=== PATIENT | female | born 1980 | race Caucasian/White ===

== ENCOUNTER 2019-12-24 10:18 | Emergency (ER) | payer BC, SELFPAY ==
--- NOTE | ~2019-12-24 | XR_ITS ---
XR abdomen/kub 1V 12/24/2019 11:56 INDICATION: Flank pain TECHNIQUE: KUB COMPARISON: None FINDINGS: Bowel gas pattern is normal. Moderate colonic fecal loading. There is no evidence of free a ir, mass, organomegaly, ascites or obstruction. No abnormal calculi are seen. The bones appear inta ct. IMPRESSION: 1: No acute abdominal abnormality identified. Reviewed, dictated and finalized at location A.
--- NOTE | ~2019-12-24 | CT_ITS ---
EXAMINATION: CT abdomen pelvis wo con DATE: 12/24/2019 11:44 INDICATION: Pain near the umbilicus. Epigastric pain. Right lower quadrant pain. TECHNIQUE: Computed tomography (CT) of the abdomen and pelvis was performed without intravenous contr ast. The dose-length product was 422.88 mGy-cm. Automated exposure control and iterative reconstructi on technique were employed. COMPARISON: CT dated 01/04/2017 FINDINGS: Lung bases are unremarkable. No significant pleural or pericardial effusion. Heart size is normal. The liver, spleen, pancreas, adrenal glands and left kidney are within normal limits. 2 mm nonobstruc ting right renal stone. No ureteral stones or hydronephrosis. There is a right periumbilical fat-cont aining hernia. Normal appendix. The liver, spleen, pancreas, adrenal glands and left kidney are unremarkable. Gallbladder is present. Moderate colonic fecal loading. No obstruction. Gallbladder is present. No free air or free fluid. S mall sclerotic lesions in the pelvis, likely benign without significant change. IMPRESSION: 1. Small fat-containing periumbilical hernia. There is an adjacent fat-containing umbilical hernia. 2: Punctate nonobstructing 2 mm right renal stone. Reviewed, dictated and finalized at location A. IMPRESSION: 1. Small fat-containing periumbilical hernia. There is an adjacent fat-containi ng umbilical hernia. 2: Punctate nonobstructing 2 mm right renal stone.
[2019-12-24 10:53] VITALS: BP 126/85; PULSE 101; RESP 20; TEMP 37.1; O2SAT 100
[2019-12-24 11:08] LABS: Basophils Percent Auto 0.4 % (0.2-1.2); Eosinophils Percent Auto 0.8 % (0-4.4); Hematocrit 40.4 % (37.0-47.0); Hemoglobin 13.6 g/dL (12.0-15.0); Immature Granulocyte Absolute 0.01 K/mm3 (0.00-0.031); Immature Granulocyte Percent A 0.2 % (0-0.5); Lymphocytes Absolute Auto 1.49 K/mm3 (0.9-3.2); Lymphocytes Percent Auto 30.6 % (18.3-44.2); Mean Corpuscular HGB Conc 33.7 g/dl (32-36); Mean Corpuscular Hemoglobin 31.3 pg (26-34); Mean Corpuscular Volume 93.1 fl (80-100); Mean Platelet Volume 8.7 fl (7.4-10.4); Monocytes Absolute Auto 0.3 K/mm3 (0.1-0.6); Monocytes Percent Auto 6.4 % (2.6-8.5); Neutrophils Percent Auto 61.6 % (45.5-73.1); Platelet Count Result 202 k/mm3 (150-375); Red Blood Count 4.34 M/mm3 (4.2-5.4); Red Cell Distribution Width 11.9 % (11.5-14.5); White Blood Count 4.9 K/mm3 (4.5-10.0)
--- NOTE | 2019-12-24 11:16 | ED.ABDPAIN ---
HPI - Abdominal Pain General Chief Complaint: Abdominal Pain Stated Complaint: Think I have appendicitis Time Seen by Provider: 12/24/19 11:10 Source: patient and RN notes reviewed Mode of arrival: ambulatory Limitations: no limitations History of Present Illness HPI narrative: Pt is a female presenting to the ED c/o ABD pain. Pt reports she started experiencing umbilical ABD pain radiating to her RLQ for 3 days. Pt states the pain is worsened with movement and going over speed bumps. Pt states she came from her Community Integration Specialist's office, Dr. Hughes, after presenting their due to a an annual inspection and for having the ABD pain. Pt also reports fever reaching 100.5 F, N/V, and feels a tight band around my chest going to my jaw , but denies dysuria or hematuria. Pt notes she took home medications of Zofran x2, Hydrocodone, and Advil x2 at 0530 this morning, and states this is the last time she has had anything to eat or drink. Pt reports Hx's of Total hysterectomy, Bilateral oophorectomies due to a Hx of ovarian cysts, , and Exploratory Laparoscopies. Pertinent past history: other (Hysterectomy; Bilateral oophorectomies; ; Exploratory Laparoscopies) Onset (ago): day(s) (3) Location: other (Umbilical) Radiation: RLQ Exacerbating factors: movement and other (Going over speed bumps) Associated symptoms: nausea, vomiting, fever (Reaching 100.5 F) and other ( Tight band around my chest going to my jaw ) Related Data Home Medications Medication Instructions Recorded Confirmed clonazepam 12/24/19 fluoxetine mg 12/24/19 ondansetron HCl 12/24/19 12/24/19 oxycodone-acetaminophen 12/24/19 zolpidem 12/24/19 Allergies Allergy/AdvReac Type Severity Reaction Status Date / Time codeine Allergy Mild Itching Verified 12/24/19 11:12 Contrast Media Allergy Unknown Anaphylaxis Uncoded 12/24/19 11:12 Review of Systems Review of Systems: All systems reviewed & are unremarkable except as noted in HPI and below Constitutional: Constitutional: Reports fever(s) (Reaching 100.5 F) Cardiovascular: Cardiovascular: Reports other ( Tight band around my chest going to my jaw ) Gastrointestinal: Gastrointestinal: Reports abdominal pain (Umbilical radiating to RLQ), Reports nausea and Reports vomiting Genitourinary: Genitourinary: Denies hematuria and Denies dysuria PMFSH Past Medical History Medical History Anxiety Asthma Bilateral ovarian cysts Depression Endometriosis Hypothyroid IBS (irritable bowel syndrome) Kidney stone UTI (urinary tract infection) Surgical History Surgical History H/O bilateral oophorectomy H/O laparoscopy H/O right knee surgery H/O total hysterectomy History of History of tonsillectomy Social History Social History Smoking status: Never smoker Exam Narrative: Exam Narrative: GENERAL: Well-appearing, well-nourished HEAD: Normocephalic, atraumatic EYES: PERRLA and EOMI, conjunctiva clear without discharge THROAT:Mucous membranes moist NECK: Supple, without lymphadenopathy or mass RESPIRATORY: No respiratory distress, Airway patent, Respirations non-labored, Clear to auscultation without rales, rhonchi or wheeze HEART: Regular rate and rhythm. No murmur heard. Normal peripheral pulses. ABDOMEN: Soft, Diffuse with worse to RLQ, nondistended, normal active bowel sounds. No masses. No rebound or guarding, No organomegaly. EXTREMITIES: No edema, normal strength with full range of motion. SKIN: Warm, dry, normal color without rash NEURO: Alert and oriented x3. CN 2-12 grossly intact. No focal deficits. PSYCH: Normal mood and affect. Course Course Emergency Course: Patient was sent by OBGYN for abdominal pain . Patient also complained of substernal chest pain on arrival to ER. Her labs were unremarkable. Patient reported chest pain so s
[2019-12-24 11:26] LABS: Alanine Aminotransferase 18 U/L (4-35); Albumin Level 4.7 g/dL (3.5-5.1); Alkaline Phosphatase 58 U/L (38-126); Aspartate Amino Transferase 26 U/L (14-36); Bilirubin,Total 0.3 mg/dL (0.2-1.3); Blood Urea Nitrogen 15 mg/dL (7-17); Calcium 9.4 mg/dL (8.4-10.2); Carbon Dioxide 27 mmol/L (22-30); Chloride 101 mmol/L (98-107); Estimated CRCL calculation 106 ml/min; Estimated Glomerular Filt Rate > 60; Glucose 94 mg/dL (65-105); Lipase 68 U/L (23-300); Potassium 4.2 mmol/L (3.4-5.0); Sodium 138 mmol/L (137-145)
--- NOTE | 2019-12-24 11:26 | ECG_ITS ---
Measurements Intervals [place] Rate: 85 P: 56 [place]: 172 QRS: 59 QRSD: 77 T: 50 QT: 364 QTc: 434 Interpretive Statements SINUS RHYTHM EARLY PRECORDIAL R/S TRANSITION LOW QRS VOLTAGE IN LIMB LEADS BORDERLINE T WAVE ABNORMALITY- ANTERIOR LEADS BASELINE ARTIFACT- I, II, AVR, AVL, AVF, V1 BORDERLINE ECG Electronically Signed On 12-24-2019 13:06:27 CDT by Franck Chiu D.O.
[2019-12-24] MEDS: LACTATED RINGERS 1,000 ML 999 ML IV CONT (11:37)
[2019-12-24] MEDS: HYDROMORPHONE HCL 1 MG/ML INJ IV PUSH (11:37)
[2019-12-24] MEDS: ONDANSETRON INJ 4 MG/2 ML VIAL IV PUSH (11:37)
--- NOTE | 2019-12-24 12:23 | PC.NURSE ---
called lab and requested to calderon nieto
[2019-12-24 12:30] VITALS: BP 132/88; PULSE 88; RESP 18; O2SAT 97
[2019-12-24 12:30] LABS: Add Urine Microscopic? NO; Appearance Urine Clear (Clear); Bilirubin Urine Negative (Negative); Blood Urine Negative (Negative); Color Urine Yellow (Yellow); Glucose Urine UA Negative (Negative); Ketones Urine Negative (Negative); Leukocyte Esterase Ur Negative LEU/UL (Negative); Nitrate Urine Negative (Negative); Protein Urine Negative (Negative); Specific Grav Ur 1.018 (1.001-1.035); Urobilinogen Urine Negative mg/dL (<2.0)
[2019-12-24 12:52] LABS: Troponin I < 0.012 ng/mL (0.000-0.034)
== END 2019-12-24 13:38 | disposition left against medical advice (07) ==
PROVIDERS: Emergency Medicine; Emergency Provider General Practice
DX: R10.31 Right lower quadrant pain (principal); R07.9 Chest pain, unspecified; J45.909 Unspecified asthma, uncomplicated; E03.9 Hypothyroidism, unspecified; K58.9 Irritable bowel syndrome, unspecified; Z87.440 Personal history of urinary (tract) infections; N80.9 Endometriosis, unspecified; F41.9 Anxiety disorder, unspecified; F32.9 Major depressive disorder, single episode, unspecified; K42.9 Umbilical hernia without obstruction or gangrene; N20.0 Calculus of kidney; Z87.442 Personal history of urinary calculi; R94.31 Abnormal electrocardiogram [ECG] [EKG]
CPT/HCPCS: 36415; 74018; 74176; 80053; 81003; 83690; 84484; 85025; 93005; 96361; 96374; 96375; 99284; J1170; J2405; J7120

== ENCOUNTER 2021-11-25 11:55 | Emergency (ER) | payer OTHER, SELFPAY ==
--- NOTE | 2021-11-25 12:06 | ED.CHESTPAIN ---
HPI - Chest Pain General Chief Complaint: Chest Pain Stated Complaint: chest pain Time Seen by Provider: 11/25/21 12:06 Source: patient and RN notes reviewed Mode of arrival: ambulatory Limitations: no limitations History of Present Illness HPI narrative: 41-year-old female presents to the [facility] with complaints of 3 weeks of sternal to left-sided chest discomfort. Had seen primary care provider and was diagnosed with pleurisy, prescribed Augmentin and a steroid. This morning she became short of breath, diaphoretic and had increased chest pain. Also states that her heart has been racing. States that there feels like a gas bubble under her left breast and has become very painful. States she was going to drive to the emergency room but could not go any further than here. MD complaint: chest pain Related Data Home Medications Medication Instructions Recorded Confirmed clonazepam 12/24/19 ondansetron HCl 12/24/19 12/24/19 oxycodone-acetaminophen 12/24/19 zolpidem 12/24/19 amoxicillin-pot clavulanate tablet 11/25/21 escitalopram oxalate mg 11/25/21 11/25/21 estradiol mg 11/25/21 11/25/21 hydromorphone 11/25/21 propranolol 11/25/21 Allergies Allergy/AdvReac Type Severity Reaction Status Date / Time codeine Allergy Mild Itching Verified 11/25/21 13:02 Contrast Media Allergy Unknown Anaphylaxis Uncoded 11/25/21 12:50 Review of Systems Review of Systems: All systems reviewed & are unremarkable except as noted in HPI and below Constitutional: Constitutional: Reports no additional constitutional complaints, Denies chills and Denies fever(s) Eyes: Eyes: Reports no additional eye complaints ENT: Reports system reviewed and no additional complaints, except as documented Cardiovascular: Cardiovascular: Reports as per HPI, Reports chest pain and Reports rapid heart rate Respiratory: Respiratory: Reports as per HPI, Denies chest congestion, Denies cough, Reports dyspnea, Reports dyspnea on exertion and Denies wheezing Gastrointestinal: Gastrointestinal: Reports no additional gastrointestinal complaints, Denies abdominal pain, Denies nausea and Denies vomiting Musculoskeletal: Musculoskeletal: Reports no additional musculoskeletal complaints Integumentary/Breasts: Skin/Breast: Reports system reviewed and no additional complaints, except as docu Neurologic: Reports as per HPI, Denies confusion, Denies vertigo, Reports dizziness, Denies syncope, Denies headache(s), Denies focal weakness, Denies numbness and Denies weakness Psychiatric: Psychiatric: Reports no additional psychiatric complaints Allergic/Immunologic: Allergic/Immunologic: Reports no additional allergic/immunologic complaints [facility] Past Medical History Medical History (Updated 11/25/21 @ 12:56 by Carmen Robles) Anxiety Asthma Autoimmune disorder Bilateral ovarian cysts Depression Endometriosis Hypothyroid IBS (irritable bowel syndrome) Kidney stone UTI (urinary tract infection) Surgical History Surgical History H/O bilateral oophorectomy H/O laparoscopy H/O right knee surgery H/O total hysterectomy History of History of tonsillectomy Social History Social History Smoking status: Never smoker Comments At the time of my signature, I reviewed and agree with the nursing past medical, surgical, social, and family history. There is no relevant family history pertinent to the patient complaint. Exam Const: General: alert, awake, acute distress mild (pain), diaphoretic and uncomfortable Nutritional Appearance: well nourished Orientation/consciousness: patient oriented x3 Limitations: no limitations HENMT: Head: normal to inspection Eyes: Pupils: Equal, round and reactive pupils present Neck: Neck: normal visual inspection, no lymphadenopathy and no meningeal signs Chest: Chest palpation & inspection: normal inspection
[2021-11-25 12:12] VITALS: BP 128/83; PULSE 136; RESP 18; TEMP 36.3; O2SAT 98
[2021-11-25 12:39] VITALS: BP 134/94
--- NOTE | 2021-11-25 12:39 | ECG_ITS ---
Measurements Intervals [place] Rate: 116 P: 50 [place]: 163 QRS: 69 QRSD: 81 T: 29 QT: 301 QTc: 419 Interpretive Statements SINUS TACHYCARDIA LOW QRS VOLTAGE- DIFFUSE LEADS ABNORMAL ECG Electronically Signed On 11-25-2021 13:20:18 COMPO CASTER by Franck Chiu D.O.
--- NOTE | 2021-11-25 13:15 | PC.NURSE ---
1221- (4) 81mg Aspirin given to pt, medication not scanned d/t medication laptop being inoperable. Medication verified prior to administration by VAISHALI Robles.
== END 2021-11-25 12:34 | disposition short-term general hospital (02) ==
PROVIDERS: Emergency Provider Nurse Practitioner; PCP Family Medicine
DX: R07.89 Other chest pain (principal); R00.0 Tachycardia, unspecified; J45.909 Unspecified asthma, uncomplicated; N80.9 Endometriosis, unspecified; E03.9 Hypothyroidism, unspecified; D89.89 Other specified disorders involving the immune mechanism, not elsewhere classified
CPT/HCPCS: 93005; 99215; A9270; G0463

== ENCOUNTER 2021-11-25 12:54 | Emergency (ER) | payer OTHER, SELFPAY ==
--- NOTE | ~2021-11-25 | CT_ITS ---
EXAMINATION: CT chest abdomen wo con DATE: 11/25/2021 16:53 INDICATION: Chest and abdominal pain. TECHNIQUE: Computed tomography (CT) of the chest and abdomen was performed without intravenous contra st. Automated exposure control and iterative reconstruction technique were employed. The dose-length product was 361.84 mGy-cm. COMPARISON: CT abdomen and pelvis 12/24/2019, chest CT 08/07/2018 FINDINGS: CHEST CT: There is minimal atelectasis in the lungs. There is a 5 mm nodule in right upper lobe, stable from , likely benign. Again seen is a 5 mm nodule at minor fissure, likely benign. Again seen is a 4 mm nodule in left lower lobe, likely benign. No pleural effusion. The heart size is normal. No per icardial effusion. There is mild thoracic spondylosis. ABDOMEN CT: The liver, gallbladder, spleen, pancreas, and adrenal glands are normal. There is a 2 mm stone in rig ht kidney. Left kidney is normal. There are no dilated loops of bowel. There is a large volume of sto ol in the colon. The included portion of the appendix is normal. There is an infraumbilical ventral h ernia containing fat. There are no pathologically enlarged lymph nodes. There is no free intraperiton eal fluid. There is mild lumbar spondylosis. IMPRESSION: 1. Infraumbilical ventral hernia containing fat. Reviewed, dictated and finalized at location E. LA CHARGER
--- NOTE | ~2021-11-25 | XR_ITS ---
XR chest 2V DATE: 11/25/2021 13:24 INDICATION: Chest pain TECHNIQUE: PA and lateral views COMPARISON: 08/07/2018 CT chest 07/30/2012 two-view chest FINDINGS: Normal heart size. No hilar or mediastinal enlargement. No pulmonary infiltrate or consolid ation, pleural effusion or pulmonary vascular congestion or pneumothorax. Included skeletal structures are unremarkable. IMPRESSION: No active cardiopulmonary disease Reviewed, dictated and finalized at location A. FILLING MACHINE OPERATOR
--- NOTE | 2021-11-25 12:58 | ECG_ITS ---
Measurements Intervals [place] Rate: 123 P: [place]: 0 QRS: 85 QRSD: 85 T: 41 QT: 301 QTc: 432 Interpretive Statements SINUS TACHYCARDIA BORDERLINE T WAVE ABNORMALITY- ANTERIOR LEADS ABNORMAL ECG Electronically Signed On 11-25-2021 13:54:48 SALES REPRESENTATIVE JEWELRY by Franck Chiu D.O.
[2021-11-25 13:03] VITALS: BP 119/69; PULSE 117; RESP 18; TEMP 36.4; O2SAT 98
[2021-11-25 13:26] LABS: Basophils Percent Auto 0.3 % (0.2-1.2); Eosinophils Absolute Auto 0.1 K/mm3 (0-0.3); Eosinophils Percent Auto 1.1 % (0-4.4); Hematocrit 40.7 % (37.0-47.0); Hemoglobin 13.7 g/dL (12.0-15.0); Immature Granulocyte Absolute 0.01 K/mm3 (0.00-0.031); Immature Granulocyte Percent A 0.2 % (0-0.5); Lymphocytes Absolute Auto 2.73 K/mm3 (0.9-3.2); Lymphocytes Percent Auto 44.8 % (18.3-44.2); Mean Corpuscular HGB Conc 33.7 g/dl (32-36); Mean Corpuscular Hemoglobin 32.2 pg (26-34); Mean Corpuscular Volume 95.5 fl (80-100); Mean Platelet Volume 8.5 fl (7.4-10.4); Monocytes Absolute Auto 0.5 K/mm3 (0.1-0.6); Monocytes Percent Auto 7.4 % (2.6-8.5); Neutrophils Absolute Auto 2.8 K/mm3 (1.3-6.7); Neutrophils Percent Auto 46.2 % (45.5-73.1); Platelet Count Result 228 k/mm3 (150-375); Red Blood Count 4.26 M/mm3 (4.2-5.4); Red Cell Distribution Width 12.4 % (11.5-14.5); White Blood Count 6.1 K/mm3 (4.5-10.0)
[2021-11-25 13:35] LABS: Alanine Aminotransferase 24 U/L (4-35); Albumin Level 4.3 g/dL (3.5-5.1); Alkaline Phosphatase 50 U/L (38-126); Anion Gap 3 mmol/L (8-16); Aspartate Amino Transferase 25 U/L (14-36); Bilirubin,Total 0.3 mg/dL (0.2-1.3); Blood Urea Nitrogen 21 mg/dL (7-17); Calcium 9.4 mg/dL (8.4-10.2); Carbon Dioxide 29 mmol/L (22-30); Chloride 101 mmol/L (98-107); Estimated CRCL calculation 92 ml/min; Estimated Glomerular Filt Rate > 60; Glucose 113 mg/dL (65-110); Lipase 58 U/L (23-300); Potassium 4.5 mmol/L (3.4-5.0); Sodium 133 mmol/L (137-145)
[2021-11-25 13:36] LABS: INR 1.2; Prothrombin Time 14.7 Seconds (11.1-14.7)
[2021-11-25 13:37] LABS: Partial Thromboplastin Time 27.3 SECONDS (22.3-36.8)
[2021-11-25 13:47] LABS: Troponin I < 0.012 ng/mL (0.000-0.034)
[2021-11-25 15:55] VITALS: O2SAT 97
[2021-11-25 16:30] VITALS: BP 111/74; PULSE 103; RESP 16; O2SAT 99
[2021-11-25] MEDS: MORPHINE SULFATE (*CRX) 4 MG/ML INJ IV PUSH (16:56)
[2021-11-25] MEDS: ONDANSETRON INJ 4 MG/2 ML VIAL IV PUSH (16:56)
[2021-11-25 17:30] VITALS: BP 102/78; PULSE 97; RESP 12; O2SAT 98
[2021-11-25 17:43] LABS: Troponin I < 0.012 ng/mL (0.000-0.034)
--- NOTE | 2021-11-25 18:04 | ED.CHESTPAIN ---
HPI - Chest Pain General Chief Complaint: Chest Pain Stated Complaint: chest pain, shortness of breath Time Seen by Provider: 11/25/21 16:04 Source: patient Mode of arrival: EMS Limitations: no limitations History of Present Illness HPI narrative: 43-year-old with a history of anxiety, depression here with complaints of left-sided chest pain and left upper abdominal pain for last 3 weeks. Patient states that she has seen her doctor was given steroids and pain medication with minimal relief. She denies any shortness of breath. Patient was seen earlier at urgent care and was later referred here to the ER for further evaluation. She denies any nausea, vomiting or diarrhea. No history of fever or chills. MD complaint: chest pain Onset (ago): week(s) (3) Timing of current episode: constant Pain location: left chest Pain radiation: abdomen (Left upper abdominal) Severity: moderate Quality: aching Relieving factors: nothing Exacerbating factors: nothing Risk Factors Coronary artery disease risk factors: none Related Data Home Medications Medication Instructions Recorded Confirmed clonazepam 12/24/19 ondansetron HCl 12/24/19 12/24/19 oxycodone-acetaminophen 12/24/19 zolpidem 12/24/19 amoxicillin-pot clavulanate tablet 11/25/21 escitalopram oxalate mg 11/25/21 11/25/21 estradiol mg 11/25/21 11/25/21 hydromorphone 11/25/21 propranolol 11/25/21 Allergies Allergy/AdvReac Type Severity Reaction Status Date / Time codeine Allergy Mild Itching Verified 11/25/21 15:52 Contrast Media Allergy Unknown Anaphylaxis Uncoded 11/25/21 12:50 Review of Systems Review of Systems: All systems reviewed & are unremarkable except as noted in HPI and below Constitutional: Constitutional: Reports no additional constitutional complaints Eyes: Eyes: Reports no additional eye complaints ENT: Reports system reviewed and no additional complaints, except as documented Cardiovascular: Cardiovascular: Reports as per HPI Respiratory: Respiratory: Reports no additional respiratory complaints Gastrointestinal: Gastrointestinal: Reports as per HPI Musculoskeletal: Musculoskeletal: Reports no additional musculoskeletal complaints Integumentary/Breasts: Skin/Breast: Reports system reviewed and no additional complaints, except as docu Neurologic: Reports system reviewed and no additional complaints, except as documented Psychiatric: Psychiatric: Reports no additional psychiatric complaints Endocrine: Endocrine: Reports no additional endocrine complaints PMFSH Past Medical History Medical History Anxiety Asthma Autoimmune disorder Bilateral ovarian cysts Depression Endometriosis Hypothyroid IBS (irritable bowel syndrome) Kidney stone UTI (urinary tract infection) Surgical History Surgical History H/O bilateral oophorectomy H/O laparoscopy H/O right knee surgery H/O total hysterectomy History of History of tonsillectomy Social History Social History Smoking status: Never smoker Exam Narrative: GENERAL: Well-appearing, well-nourished, and in no acute distress. HEAD: Normocephalic, atraumatic. EYES: PERRLA and EOMI. NECK: Supple. CHEST: Clear to auscultation. No respiratory distress. There is no evidence of rash under the left breast or in the back HEART: Regular rate and rhythm. No murmur heard. Normal peripheral pulses. ABDOMEN: Soft, diffuse tenderness , nondistended, normal active bowel sounds. EXTREMITIES: Normal range of motion. No edema. SKIN: Warm, dry, no rash. NEURO: No focal deficits. Alert and oriented x3. PSYCH: Normal mood and affect. Course Course Emergency Course: Patient comfortably lying on stretcher in no discomfort. I informed her about her lab work, CT findings and EKG cause of her left-sided chest pain which has been on
[2021-11-25 18:10] VITALS: BP 102/74; PULSE 105; RESP 16; O2SAT 96
== END 2021-11-25 18:15 | disposition home or self-care (01) ==
PROVIDERS: Emergency Medicine; Emergency Provider Family Medicine; PCP Family Medicine
DX: R07.9 Chest pain, unspecified (principal); R10.12 Left upper quadrant pain; R00.0 Tachycardia, unspecified; F41.9 Anxiety disorder, unspecified; J45.909 Unspecified asthma, uncomplicated; F32.9 Major depressive disorder, single episode, unspecified; E03.9 Hypothyroidism, unspecified; Z87.442 Personal history of urinary calculi
CPT/HCPCS: 36415; 71046; 71250; 74150; 80053; 83690; 84484; 85025; 85610; 85730; 93005; 96374; 96375; 99284; A9270; J2270; J2405

== ENCOUNTER 2022-03-31 14:06 | Outpatient (CLI) | payer OTHER, SELFPAY ==
--- NOTE | ~2022-03-31 | MM_ITS ---
EXAMINATION: MM screening bret BI w sharron HISTORY: Screening TECHNIQUE: Craniocaudal and mediolateral oblique 3-D tomosynthesis images were obtained and synthetic 2-D images were generated. CAD analysis was submitted and interpreted. COMPARISON: No prior mammogram is available for comparison at this institution. BREAST PARENCHYMAL COMPOSITION: The breasts are heterogenously dense, which may obscure small masses FINDINGS: There is no evidence of suspicious mass, calcification, or architectural distortion to sugg est malignancy in either breast. There has been no suspicious interval change. IMPRESSION: 1. No mammographic evidence of malignancy. 2. Recommend routine screening mammography in one year. BI-RADS Category 1: Negative Reviewed, dictated and finalized at location A.
== END 2022-03-31 14:07 | disposition home or self-care (01) ==
LOC: ANHIMG 14:07
PROVIDERS: PCP Family Medicine; Visit Provider Obstetrics & Gynecology
DX: Z12.31 Encounter for screening mammogram for malignant neoplasm of breast (principal)
CPT/HCPCS: 77063; 77067

== ENCOUNTER 2025-07-11 07:30 | Emergency (ER) | payer BC, SELFPAY ==
--- NOTE | ~2025-07-11 | XR_ITS ---
Examination: XR chest 2V Clinical History: CHEST PAIN/SOB Comparison: 11/25/2021 Technique: PA and Lateral Findings: Cardiomediastinal silhouette normal size and configuration. Lungs clear. No acute bony abnormality. IMPRESSION: 1. No acute cardiopulmonary findings. Reviewed, dictated and finalized at location R.
--- NOTE | 2025-07-11 07:31 | ECG_ITS ---
Test Date: 2025-07-11 07:36:38 Measurements Intervals [place] Rate: 112 P: 58 [place]: 159 QRS: 89 QRSD: 86 T: 43 QT: 317 QTc: 433 Interpretive Statements SINUS TACHYCARDIA LOW-VOLTAGE QRS OTHERWISE NORMAL ECG No previous ECG available for comparison Electronically Signed On 07-11-2025 12:45:00 CDT by Sonu Ordonez M.D.
[2025-07-11 07:35] VITALS: BP 129/65; PULSE 105; RESP 29; TEMP 35.6; O2SAT 100
[2025-07-11 07:37] VITALS: BP 129/65; PULSE 111; RESP 19; O2SAT 100
[2025-07-11 07:45] VITALS: PULSE 107; O2SAT 98
[2025-07-11] MEDS: ASPIRIN 81 MG CHEWABLE TABLET 324 MG PO (07:51)
[2025-07-11 07:53] LABS: Hematocrit 40.2 % (37.0-47.0); Hemoglobin 13.6 g/dL (12.0-15.0); Immature Granulocyte Percent A 0.3 % (0-0.5); Lymphocytes Absolute Auto 1.82 K/mm3 (0.9-3.2); Mean Corpuscular HGB Conc 33.8 g/dl (32-36); Mean Corpuscular Hemoglobin 31.4 pg (26-34); Mean Corpuscular Volume 92.8 fl (80-100); Nucleated Red Blood Cells Absolute Auto 0.000 K/mm3 (0.0-0.012); Nucleated Red Blood Cells Perc 0.0 % (0.0-0.2); Platelet Count Result 215 k/mm3 (150-375); Red Blood Count 4.33 M/mm3 (4.2-5.4); White Blood Count 5.9 K/mm3 (4.5-10.0)
--- OUTSIDE RECORDS SUMMARY | 2025-07-11 07:54 | XMS_ITS | Encounter Summary ---
Author Organization [facility] Address [facility] [place] [address] Care Team Providers Care Inside Tester Name Role Phone Tyson Vázquez MD Primary Care Provider [phone] Encounter Details Date Type Department Care Team (Late st Contact Info) Description 03/24/2019 Abstract [facility] CONVERSION [id number] [place], [place] [id number] , Generic Conversion, Social History Tobacco Use Types Packs/Day Years Used Date Smoking Tobacco: Never Smokeless Tobacco: Never Comments Unknown Sex and Gender Information Value Date Recorded Sex Assigned at Not on file Legal Sex Female 7:18 PM CDT Gender Identity Not on file Sexual Orientation Not on file documented as of this encounter Plan of Treatment Not on file documented as of this encounter Visit Diagnoses Not on filedocumented in this encounter Additional Health Concerns Infection Onset Date Last Indicated Resolved Time COVID-19 Rule Out 04/30/2020 04/30/2020 04/30/2020 8:50 AM CDT documented as of this encounter Care Teams Inside Tester Relationship Specialty Start Date End Date Tyson Vázquez MD [address] [place] [address] PCP - General 12/28/15 documented as of this encounter
--- OUTSIDE RECORDS SUMMARY | 2025-07-11 07:54 | XMS_ITS | Encounter Summary ---
Author Organization [facility] Facility Care Team Providers Care Refueling Ramp Supervisor Name Role Phone Tyson Vázquez MD Primary Care Provid er Jonah Ceron DO Unavailable Bhupinder NICHOLS MD, Jonah Caraballo Unavailable [phone] Carie Rush Primary Care Provider + Encounter Details Date Type Department Care Team (Latest Contact Info) Description 05/01/2017 Orders Only [facility] CLINCONV ProviderLogan MD [address] [place] [id number] Social History Tobacco Use Types Packs/Day Years Used Date Smoking Tobacco: Never Alcohol Use Standard Drinks/Week Comments Yes 0 (1 standard drink = 0.6 oz pur e alcohol) Comments Unknown Sex and Gender Information Value Date Recorded Sex Assigned at Not on file 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 us Historical Provider [facility] CARDIAC SERVICES PROCE KELLEE Final Result documented in this encounter Visit Diagnoses Not on filedocumented in this encounter Care Teams Refueling Ramp Supervisor Relationship Specialty Start Date End Date Tyson Vázquez MD [address] [place] [address] PCP - General 10/08/15 04/28/25 Carie Rush PA [address] [facility] [address] [place] [address] PCP - General Family Medicine 04/29/25 Jonah Ceron DO [address] [place] [address] MEDICAL ONCOLOGY, [facility] [address] [place], [place] [id number] Medical Oncologist/Cottage Master Hematology and Oncology 12/24/20 Jonah Roe III, MD [address] [place] [address] Consulting Physician Rheumatology 05/13/21 documented as of this encounter
--- OUTSIDE RECORDS SUMMARY | 2025-07-11 07:54 | XMS_ITS | Encounter Summary ---
Author Organization [facility] Facility Care Team Providers Care Fructose Loader Name Role Phone Tyson Vázquez MD Primary Care Provid er Jonah Ceron DO Unavailable [phone] Bhupinder NICHOLS MD, Jonah Caraballo Unavailable [phone] Carie Rush Primary Care Provider + Encounter Details Date Type Department Care Team (Latest Contact Info) Description 04/17/2017 Orders Only [facility] CLINCONV ProviderLogan MD [address] [place] [address] Social History Tobacco Use Types Packs/Day Years Used Date Smoking Tobacco: Never Alcohol Use Standard Drinks/Week Comments Yes 0 (1 standard drink = 0.6 oz pur e alcohol) Comments Unknown Sex and Gender Information Value Date Recorded Sex Assigned at Not on file 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 us Historical Provider CV CARDIAC SERVICES PROCE KELLEE Final Result documented in this encounter Visit Diagnoses Not on filedocumented in this encounter Care Teams Fructose Loader Relationship Specialty Start Date End Date Tyson Vázquez MD [address] [place] [address] PCP - General 10/08/15 04/28/25 Carie Rush PA [address] [facility] [address] [place] [address] PCP - General Family Medicine 04/29/25 Jonah Ceron DO [address] [place] [address] MEDICAL ONCOLOGY, [facility] [address] [place], [place] [id number] Medical Oncologist/Retirement Actuary Hematology and Oncology 12/24/20 Jonah Roe III, MD [address] [place] [address] Consulting Physician Rheumatology 05/13/21 documented as of this encounter
--- OUTSIDE RECORDS SUMMARY | 2025-07-11 07:54 | XMS_ITS | Encounter Summary ---
Author Organization [facility] Facility Care Team Providers Care Mattress Finisher Name Role Phone Tyson Vázquez MD Primary Care Provid er Jonah Ceron DO Unavailable [phone] Bhupinder NICHOLS MD, Jonah Caraballo Unavailable [phone] Carie Rush Primary Care Provider + Encounter Details Date Type Department Care Team (Latest Contact Info) Description 04/26/2017 Orders Only [facility] CLINCONV ProviderLogan MD [address] [place] [address] Social History Tobacco Use Types Packs/Day Years Used Date Smoking Tobacco: Never Alcohol Use Standard Drinks/Week Comments Yes 0 (1 standard drink = 0.6 oz pur e alcohol) Comments Unknown Sex and Gender Information Value Date Recorded Sex Assigned at Not on file Legal Sex Female 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 us Historical Provider CV CARDIAC SERVICES PROCE [facility] Final Result documented in this encounter Visit Diagnoses Not on filedocumented in this encounter Care Teams Mattress Finisher Relationship Specialty Start Date End Date yTson Vázquez MD [address] [place] [address] PCP - General 10/08/15 04/28/25 Carie Rush PA [address] [facility] [address] [place] [address] PCP - General Family Medicine 04/29/25 Jonah Ceron DO [address] [place] [address] MEDICAL ONCOLOGY, [facility] [address] [place], [place] [id number] Medical Oncologist/Line Helper Hematology and Oncology 12/24/20 Jonah Roe III, MD [address] [place] [address] Consulting Physician Rheumatology 05/13/21 documented as of this encounter
--- OUTSIDE RECORDS SUMMARY | 2025-07-11 07:54 | XMS_ITS | Encounter Summary ---
Author Organization [facility] Facility Care Team Providers Care Tableau Report Developer Name Role Phone Tyson Vázquez MD Primary Care Provid er Jonah Ceron DO Unavailable [phone] Bhupinder NICHOLS MD, Jonah Caraballo Unavailable [phone] Carie Rush Primary Care Provider + Encounter Details Date Type Department Care Team (Latest Contact Info) Description 05/11/2017 Orders Only [facility] CLINCONV ProviderLogan MD [address] [place] [address] Social History Tobacco Use Types Packs/Day Years Used Date Smoking Tobacco: Never Alcohol Use Standard Drinks/Week Comments Yes 0 (1 standard drink = 0.6 oz pur e alcohol) Comments Unknown Sex and Gender Information Value Date Recorded Sex Assigned at Not on file Legal Sex Female 3:14 AM CLASSIFICATION CASE MANAGER Gender Identity Female 03/20/2018 4:57 PM CDT Sexual Orientation Not on file documented as of this encounter Plan of Treatment Not on file documented as of this encounter Procedures Procedure Name Priority Date/Time Associated Diagnosis Comments CARDIOLOGY REPORT 05/11/2017 12: 00 AM CDT documented in this encounter Results * CARDIOLOGY REPORT (05/11/2017 12:00 AM CDT) Anatomical Region Laterality Modality Other Narrative 05/11/2017 12:00 AM CDT Ordered by an unspecified provider. us Historical Provider CV CARDIAC SERVICES PROCE [facility]LEE Final Result documented in this encounter Visit Diagnoses Not on filedocumented in this encounter Care Teams Tableau Report Developer Relationship Specialty Start Date End Date Tyson Vázquez MD [address] [place] [address] PCP - General 10/08/15 04/28/25 Carie Rush PA [address] [facility] [address] [place] [address] PCP - General Family Medicine 04/29/25 Jonah Ceron DO [address] [place] [address] MEDICAL ONCOLOGY, [facility] [address] [place], [place] [id number] Medical Oncologist/Oil Distributor Tender Hematology and Oncology 12/24/20 Jonah Roe III, MD [address] [place] [address] Consulting Physician Rheumatology 05/13/21 documented as of this encounter
--- OUTSIDE RECORDS SUMMARY | 2025-07-11 07:54 | XMS_ITS | Clinical Summary ---
Author Organization [facility] Address [address] [place] [address] Care Team Providers Care Environmental Field Technician Name Role Phone Tyson Vázquez MD Primary Care Provider [phone] Allergies Active Allergy Reactions Criticality Noted Date Comments Codeine Itching 02/19/2019 Iodinated Contrast Media Shortness of Breath,Rash High 12/20/2014 IV dye Tramadol Itching 03/05/2011 itching Medications clonazePAM 0.5 MG disintegrating tablet DISSOLVE 2 TABLETS ON THE TONGUE Q 8 H FOR ANXIETY 0 02/17/20 19 Active fluoxetine 20 MG capsule Take 60 mg by mouth nightly. 1 01/16/20 19 Active oxyCODONE-acetamin ophen 10-325 MG tablet TK 1 TO 2 TS PO Q 6 H PRF SEVERE PAIN 0 02/14/20 19 Active zolpidem 10 MG tablet Take 10 mg by mouth nightly as needed. FOR SLEEP 0 02/13/20 19 Active HYDROmorphone 4 MG tablet Take 4 mg by mouth every 6 (six) hours as needed for Pain (for breakthrough pain). Active ondansetron 4 MG tablet Take 8 mg by mouth every 8 (eight) hours as needed for Nausea. Active tamsulosin 0.4 MG Cap Take 0.4 mg by mouth daily. Active Active Problems Problem Noted Date Diagnosed Date Right upper quadrant abdominal pain 02/19/2019 Epigastric abdominal pain 02/19/2019 Family History Medical History Relation Comments Cancer Father prostate, non-ho dgkins, melanoma Relation Status Comments Daughter Alive Father Alive Mother Alive Son Alive Social History Tobacco Use Types Packs/Day Years Used Date Smoking Tobacco: Never Smokeless Tobacco: Never Alcohol Use Standard Drinks/Week Comments Never 0 (1 standard drink = 0.6 oz pur e alcohol) AUDIT-C Answer Date Recorded Frequency of Alcohol Consumption Never 04/29/2020 Average Number of Drinks Not on file 020 Frequency of Binge Drinking Not on file 04/16 Comments No Sex and Gender Information Value Date Recorded Sex Assigned at Not on file Legal Sex Female 7:18 PM CDT Gender Identity Not on file Sexual Orientation Not on file Last Filed Vital Signs Vital Sign Reading Time Taken Comments Blood Pressure 108/76 04/30/2020 11:50 AM CDT Pulse 100 04/30/2020 11:50 AM CDT Temperature 36.7 C (98 F) 04/30/2020 11:50 AM CDT Respiratory Rate 18 04/30/2020 11:50 AM CDT Oxygen Saturation 98% 04/30/2020 11:50 AM CDT Inhaled Oxygen Concentration - - Weight 72.4 kg (159 lb 9.8 oz) 04/30/2020 6:10 A M CDT Height 166.4 cm (5' 5.5) 04/30/2020 6:10 AM CDT Body Mass Index 26.16 04/30/2020 6:10 AM CDT Plan of Treatment Health Maintenance Due Date Last Done Comments Colorectal Cancer Screening Colonoscopy (10 Years) 1978 Annual Physical 1981 Hepatitis C 1996 Hepatitis B Vaccines (1 of 3 - 19+ 3-dose series) 1997 Mammogram Screening 2018 DTaP, Tdap and Td Vaccines ( 2 - Td or Tdap) 10/18/2021 10/18/2011 COVID-19 Vaccine (2023-2 5 season) 2025 Pneumococcal Vaccine: Pediat rics (0 to 5 Years) and At-Risk Patients (6 to 49 Years) Aged Out 10/19/2010 No longer eligi ble based on patient's age to complete this topic Meningococcal B Vaccine Aged Out No l onger eligible based on patient's age to complete this topic Meningococcal Vaccine Aged Out No bernabe tomi eligible based on patient's age to complete this topic RSV Immunizations Under 20 Months Aged Out No longer eligible based on patient's age to complete this topic Insurance [facility] Care Teams Environmental Field Technician Relationship Specialty Start Date End Date Tyson Vázuqez MD [address] [facility] [place] [address] PCP - General 12/28/15
--- OUTSIDE RECORDS SUMMARY | 2025-07-11 07:54 | XMS_ITS | Encounter Summary ---
Author Organization [facility] Facility Care Team Providers Care Lighting Technician Name Role Phone Tyson Vázquez MD Primary Care Provid er Jonah Ceron DO Unavailable [phone] Bhupinder NICHOLS MD, Jonah Caraballo Unavailable [phone] Carie Rush Primary Care Provider + Encounter Details Date Type Department Care Team (Latest Contact Info) Description 05/05/2017 Orders Only [facility] CLINCONV ProviderLogna MD [address] [place] [address] Social History Tobacco Use Types Packs/Day Years Used Date Smoking Tobacco: Never Alcohol Use Standard Drinks/Week Comments Yes 0 (1 standard drink = 0.6 oz pur e alcohol) Comments Unknown Sex and Gender Information Value Date Recorded Sex Assigned at Not on file 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 us Historical Provider CV CARDIAC SERVICES PROCE [facility] Final Result documented in this encounter Visit Diagnoses Not on filedocumented in this encounter Care Teams Lighting Technician Relationship Specialty Start Date End Date Tyson Vázquez MD [address] [place] [address] PCP - General 10/08/15 04/28/25 Carie Rush PA [address] [facility] [address] [place] [address] PCP - General Family Medicine 04/29/25 Jonah Ceron DO [address] [place] [address] MEDICAL ONCOLOGY, [facility] [address] [place], [place] [id number] Medical Oncologist/Hand Tile Maker Hematology and Oncology 12/24/20 Jonah Roe III, MD [address] [place] [address] Consulting Physician Rheumatology 05/13/21 documented as of this encounter
--- OUTSIDE RECORDS SUMMARY | 2025-07-11 07:54 | XMS_ITS | Encounter Summary ---
Author Organization [facility] Facility Care Team Providers Care Data Coordinator Name Role Phone Tyson Vázquez MD Primary Care Provid er Jonah Ceron DO Unavailable [phone] Bhupinder NICHOLS MD, Jonah Caraballo Unavailable [phone] Carie Rush Primary Care Provider + Encounter Details Date Type Department Care Team (Latest Contact Info) Description 05/08/2017 Orders Only [facility] CLINCONV ProviderLogan MD [address] [place] [address] Social History Tobacco Use Types Packs/Day Years Used Date Smoking Tobacco: Never Alcohol Use Standard Drinks/Week Comments Yes 0 (1 standard drink = 0.6 oz pur e alcohol) Comments Unknown Sex and Gender Information Value Date Recorded Sex Assigned at Not on file Legal Sex Female 3:14 AM NATIONAL ACCOUNT MANAGER Gender Identity Female 03/20/2018 4:57 PM CDT Sexual Orientation Not on file documented as of this encounter Plan of Treatment Not on file documented as of this encounter Procedures Procedure Name Priority Date/Time Associated Diagnosis Comments CARDIOLOGY REPORT 05/09/2017 12: 00 AM CDT documented in this encounter Results * CARDIOLOGY REPORT (05/09/2017 12:00 AM CDT) Anatomical Region Laterality Modality Other Narrative 05/09/2017 12:00 AM CDT Ordered by an unspecified provider. us Historical Provider CV CARDIAC SERVICES PROCE [facility]ELLEE Final Result documented in this encounter Visit Diagnoses Not on filedocumented in this encounter Care Teams Data Coordinator Relationship Specialty Start Date End Date Tyson Vázquez MD [address] [place] [address] PCP - General 10/08/15 04/28/25 Carie Rush PA [address] [facility] [address] [place] [address] PCP - General Family Medicine 04/29/25 Jonah Ceron DO [address] [place] [address] MEDICAL ONCOLOGY, [facility] [address] [place], [place] [phone] Medical Oncologist/Power Originator Hematology and Oncology 12/24/20 Jonah Roe III, MD [address] [place] [address] Consulting Physician Rheumatology 05/13/21 documented as of this encounter
--- OUTSIDE RECORDS SUMMARY | 2025-07-11 07:54 | XMS_ITS | Encounter Summary ---
Author Organization [facility] Facility Care Team Providers Care Peoplesoft Name Role Phone Tyson Vázquez MD Primary Care Provid er Jonah Ceron DO Unavailable [phone] Bhupinder NICHOLS MD, Jonah Caraballo Unavailable [phone] Carie Rush Primary Care Provider + Encounter Details Date Type Department Care Team (Latest Contact Info) Description 04/23/2017 Orders Only [facility] CLINCONV ProviderLogan MD [address] [place] [address] Social History Tobacco Use Types Packs/Day Years Used Date Smoking Tobacco: Never Alcohol Use Standard Drinks/Week Comments Yes 0 (1 standard drink = 0.6 oz pur e alcohol) Comments Unknown Sex and Gender Information Value Date Recorded Sex Assigned at Not on file Legal Sex Female 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 us Historical Provider CV CARDIAC SERVICES PROCE [facility]ELLEE Final Result documented in this encounter Visit Diagnoses Not on filedocumented in this encounter Care Teams Peoplesoft Relationship Specialty Start Date End Date Tyson Vázquez MD [address] [place] [address] PCP - General 10/08/15 04/28/25 Carie Rush PA [address] [facility] [address] [place] [address] PCP - General Family Medicine 04/29/25 Jonah Ceron DO [address] [place] [address] MEDICAL ONCOLOGY, [facility] [address] [place], [place] [phone] Medical Oncologist/Patient Accounting Representative Hematology and Oncology 12/24/20 Jonah Roe III, MD [address] [place] [address] Consulting Physician Rheumatology 05/13/21 documented as of this encounter
--- OUTSIDE RECORDS SUMMARY | 2025-07-11 07:54 | XMS_ITS | Encounter Summary ---
Author Organization [facility] Facility Care Team Providers Care Jewel Diameter Gauger Name Role Phone Tyson Vázquez MD Primary Care Provid er Jonah Ceron DO Unavailable [phone] Bhupinder NICHOLS MD, Jonah Caraballo Unavailable [phone] Carie Rush Primary Care Provider + Encounter Details Date Type Department Care Team (Latest Contact Info) Description 04/19/2017 Orders Only [facility] CLINCONV ProviderLogan MD [address] [place] [address] Social History Tobacco Use Types Packs/Day Years Used Date Smoking Tobacco: Never Alcohol Use Standard Drinks/Week Comments Yes 0 (1 standard drink = 0.6 oz pur e alcohol) Comments Unknown Sex and Gender Information Value Date Recorded Sex Assigned at Not on file Legal Sex Female 3:14 AM EPOXY SPECIALIST Gender Identity Female 03/20/2018 4:57 PM CDT Sexual Orientation Not on file documented as of this encounter Plan of Treatment Not on file documented as of this encounter Procedures Procedure Name Priority Date/Time Associated Diagnosis Comments CARDIOLOGY REPORT 04/21/2017 12: 00 AM CDT documented in this encounter Results * CARDIOLOGY REPORT (04/21/2017 12:00 AM CDT) Anatomical Region Laterality Modality Other Narrative 04/21/2017 12:00 AM CDT Ordered by an unspecified provider. us Historical Provider CV CARDIAC SERVICES PROCE [facility]LEE Final Result documented in this encounter Visit Diagnoses Not on filedocumented in this encounter Care Teams Jewel Diameter Gauger Relationship Specialty Start Date End Date Tyson Vázquez MD [address] [place] [address] PCP - General 10/08/15 04/28/25 Carie Rush PA [address] [facility] [address] [place] [address] PCP - General Family Medicine 04/29/25 Jonah Ceron DO [address] [place] [address] MEDICAL ONCOLOGY, [facility] [address] [place], [place] [phone] Medical Oncologist/Steward/Stewardess Economy Class Hematology and Oncology 12/24/20 Jonah Roe III, MD [address] [place] [address] Consulting Physician Rheumatology 05/13/21 documented as of this encounter
--- OUTSIDE RECORDS SUMMARY | 2025-07-11 07:54 | XMS_ITS | Encounter Summary ---
Author Organization [facility]/Health system Facility Care Team Providers Care Wash Helper Name Role Phone Tyson Vázquez MD Primary Care Provid er Jonah Ceron DO Unavailable [phone] Bhupinder NICHOLS MD, Jonah Caraballo Unavailable [phone] Carie Rush Primary Care Provider + Encounter Details Date Type Department Care Team (Latest Contact Info) Description 04/18/2017 Orders Only [facility] CLINCONV ProviderLogan MD [address] [place] [address] Social History Tobacco Use Types Packs/Day Years Used Date Smoking Tobacco: Never Alcohol Use Standard Drinks/Week Comments Yes 0 (1 standard drink = 0.6 oz pur e alcohol) Comments Unknown Sex and Gender Information Value Date Recorded Sex Assigned at Not on file Legal Sex Female 3:14 AM APPLIANCE TESTER Gender Identity Female 03/20/2018 4:57 PM CDT Sexual Orientation Not on file documented as of this encounter Plan of Treatment Not on file documented as of this encounter Procedures Procedure Name Priority Date/Time Associated Diagnosis Comments CARDIOLOGY REPORT 04/18/2017 12: 00 AM CDT documented in this encounter Results * CARDIOLOGY REPORT (04/18/2017 12:00 AM CDT) Anatomical Region Laterality Modality Other Narrative 04/18/2017 12:00 AM CDT Ordered by an unspecified provider. us Historical Provider CV CARDIAC SERVICES PROCE [facility]ELLEE Final Result documented in this encounter Visit Diagnoses Not on filedocumented in this encounter Care Teams Wash Helper Relationship Specialty Start Date End Date Tyson Vázquez MD [address] [place] [address] PCP - General 10/08/15 04/28/25 Carie Rush PA [address] [facility] [address] [place] [address] PCP - General Family Medicine 04/29/25 Jonah Ceron DO [address] [place] [address] MEDICAL ONCOLOGY, [facility] [address] [place], [place] [phone] Medical Oncologist/Director Of Safety Hematology and Oncology 12/24/20 Jonah Roe III, MD [address] [place] [address] Consulting Physician Rheumatology 05/13/21 documented as of this encounter
--- OUTSIDE RECORDS SUMMARY | 2025-07-11 07:54 | XMS_ITS | Encounter Summary ---
Author Organization [facility] Facility Care Team Providers Care Directory Operator Name Role Phone Tyson Vázquez MD Primary Care Provid er Jonah Ceron DO Unavailable Bhupinder NICHOLS MD, Jonah Caraballo Unavailable [phone] Carie Rush Primary Care Provider + Encounter Details Date Type Department Care Team (Latest Contact Info) Description 05/02/2017 Orders Only [facility] CLINCONV ProviderLogan MD [address] [place] [address] Social History Tobacco Use Types Packs/Day Years Used Date Smoking Tobacco: Never Alcohol Use Standard Drinks/Week Comments Yes 0 (1 standard drink = 0.6 oz pur e alcohol) Comments Unknown Sex and Gender Information Value Date Recorded Sex Assigned at Not on file Legal Sex Female 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 us Historical Provider CV CARDIAC SERVICES PROCE KELLEE Final Result documented in this encounter Visit Diagnoses Not on filedocumented in this encounter Care Teams Directory Operator Relationship Specialty Start Date End Date Tyson Vázquez MD [address] [place] [address] PCP - General 10/08/15 04/28/25 Carie Rush PA [address] [facility] [address] [place] [address] PCP - General Family Medicine 04/29/25 Jonah Ceron DO [address] [address] MEDICAL ONCOLOGY, [facility] [address] [place], [place] [id number] Medical Oncologist/Donkey Doctor Hematology and Oncology 12/24/20 Jonah Roe III, MD [address] [place] [address] Consulting Physician Rheumatology 05/13/21 documented as of this encounter
--- OUTSIDE RECORDS SUMMARY | 2025-07-11 07:54 | XMS_ITS | Encounter Summary ---
Author Organization [facility] Facility Care Team Providers Care Belt Cleaner Name Role Phone Tyson Vázquez MD Primary Care Provid er Jonah Ceron DO Unavailable [phone] Bhupinder NICHOLS MD, Jonah Caraballo Unavailable [phone] Carie Rush Primary Care Provider + Encounter Details Date Type Department Care Team (Latest Contact Info) Description 05/04/2017 Orders Only [facility] CLINCONV ProviderLogan MD [address] [place] [address] Social History Tobacco Use Types Packs/Day Years Used Date Smoking Tobacco: Never Alcohol Use Standard Drinks/Week Comments Yes 0 (1 standard drink = 0.6 oz pur e alcohol) Comments Unknown Sex and Gender Information Value Date Recorded Sex Assigned at Not on file Legal Sex Female 3:14 AM BURNISHER AND BUMPER Gender Identity Female 03/20/2018 4:57 PM CDT [...] on filedocumented in this encounter Care Teams Belt Cleaner Relationship Specialty Start Date End Date Tyson Vázquez MD [address] [place] [address] PCP - General 10/08/15 04/28/25 Carie Rush PA [address] [facility] [address] [place] [address] PCP - General Family Medicine 04/29/25 Jonah Ceron DO [address] [place] [address] MEDICAL ONCOLOGY, [facility] [address] [place], [place] [phone] Medical Oncologist/Bone Drier Operator Hematology and Oncology 12/24/20 Jonah Roe III, MD [address] [place] [address] Consulting Physician Rheumatology 05/13/21 documented as of this encounter
--- OUTSIDE RECORDS SUMMARY | 2025-07-11 07:55 | XMS_ITS | Encounter Summary ---
Author Organization [facility] Facility Care Team Providers Care Pump Station Operator Name Role Phone Tyson Vázquez MD Primary Care Provid er Jonah Ceron DO Unavailable Bhupinder NICHOLS MD, Jonah Caraballo Unavailable [phone] Carie Rush Primary Care Provider + Encounter Details Date Type Department Care Team (Latest Contact Info) Description 12/08/2016 Orders Only [facility] ProviderLogan MD [address] [place] [id number] Social History Tobacco Use Types Packs/Day Years Used Date Smoking Tobacco: Never Alcohol Use Standard Drinks/Week Comments Yes 0 (1 standard drink = 0.6 oz pur e alcohol) Comments Unknown Sex and Gender Information Value Date Recorded Sex Assigned at Not on file Legal Sex Female 3:14 AM STATION EXAMINER Gender Identity Female 03/20/2018 4:57 PM CDT Sexual Orientation Not on file documented as of this encounter Plan of Treatment Not on file documented as of this encounter Procedures Procedure Name Priority Date/Time Associated Diagnosis Comments COLONOSCOPY - SCAN 12/08/2016 12 :00 AM STATION EXAMINER documented in this encounter Results * COLONOSCOPY - SCAN (12/08/2016 12:00 AM STATION EXAMINER) Narrative 12/08/2016 12:00 AM STATION EXAMINER Ordered by an unspecified provider. Historical Provider MD Final Res ult documented in this encounter Visit Diagnoses Not on filedocumented in this encounter Care Teams Pump Station Operator Relationship Specialty Start Date End Date Tyson Vázquez MD [address] [place] [address] PCP - General 10/08/15 04/28/25 Carie Rush PA [address] [facility] [address] [place] [address] PCP - General Family Medicine 04/29/25 Jonah Ceron DO [address] [place] [address] MEDICAL ONCOLOGY, [facility] [address] [place] [address] Medical Oncologist/Manager Heart Failure Hematology and Oncology 12/24/20 Jonah Roe III, MD [address] [place] [address] Consulting Physician Rheumatology 05/13/21 documented as of this encounter
--- OUTSIDE RECORDS SUMMARY | 2025-07-11 07:55 | XMS_ITS | Clinical Summary ---
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 3:09 PM CDT 07/05/2025 3:14 PM CDT Nasir Swartz DO LAB BLOOD ORDERABLES Final Result BEATRIZ [address] [facility] Department [place] [address] * CT Abdomen Pelvis WO Contrast (07/05/2025 12:18 PM CDT) Anatomical Region Laterality Modality Body N/A Computed Tomogra phy 07/05/2025 12:2 1 PM CDT Narrative 07/05/2025 12:30 PM CDT EXAM DESCRIPTION: CT ABDOMEN PELVIS WO CONTRAST REASON FOR STUDY: Abdominal/flank pain, stone suspected TECHNIQUE: CT scan of the abdomen and pelvis performed without intravenous and without oral contrast using helical scanning technique. Reconstructed coronal and sagittal MPR images reviewed. All images stored on PACS. Automated exposure control was used as a dose optimization technique for this examination. COMPARISON: 05/16/2024 FINDINGS: The sensitivity for detection of visceral lesions is diminished without the use of intravenous contrast. LOWER CHEST: No consolidation or pleural effusion. 3 mm subpleural left lower lobe nodule (series 2 image 23). Normal heart size with no pericardial effusion. LIVER: Normal size. No identified cystic or solid masses. GALLBLADDER: No cholelithiasis. No wall thickening or pericholecystic fluid. Phrygian cap (normal anatomic variant). BILE DUCTS: No intrahepatic or extrahepatic ductal dilatation. SPLEEN: Normal size. No focal lesions. PANCREAS: No identified cystic or solid masses. No significant calcifications. No adjacent inflammation or peripancreatic fluid collections. Pancreatic duct not dilated. ADRENALS: Normal. KIDNEYS/URINARY TRACT: Normal size. 1 mm nonobstructing right renal calculus. No hydronephrosis or hydroureter. GI: No dilated bowel loops. No obvious wall thickening. Normal appendix. Mild colonic diverticulosis. PERITONEUM: No ascites or free air. RETROPERITONEUM: No mass or adenopathy. REPRODUCTIVE: The uterus is absent. VASCULATURE: No abdominal aortic aneurysm. MUSCULOSKELETAL: No acute fracture or aggressive osseous lesion. Left iliac bone islands. L4-L5 severe facet arthropathy. OTHER: Unchanged small fat containing periumbilical hernia. IMPRESSION: 1. No acute finding in the abdomen or pelvis. 2. Unchanged 1 mm nonobstructing right renal calculus. THIS IS AN ELECTRONICALLY VERIFIED FINAL REPORT 07/05/2025 12:30 PM - Electronically signed by Sd New M.D. MM: MM Report ID: [id number] Reading Location: [id number] Procedure Note Sd New MD - 07/05/2025 EXAM DESCRIPTION: CT ABDOMEN PELVIS WO CONTRAST REASON FOR STUDY: Abdominal/flank pain, stone suspected TECHNIQUE: CT scan of the abdomen and pelvis performed without intravenousand without oral contrast using helical scanning technique. Reconstructed coronal and sagittal MPR images reviewed. All images stored on PACS.Automated exposure control was used as a dose optimization technique for this examination. COMPARISON: 05/16/2024 FINDINGS: The sensitivity for detection of visceral lesions is diminished without the use of intravenous contrast. LOWER CHEST: No consolidation or pleural effusion. 3 mm subpleural leftlower lobe nodule (series 2 image 23). Normal heart size with no pericardial effusion. LIVER: Normal size. No identified cystic or solid masses. GALLBLADDER: No cholelithiasis. No wall thickening or pericholecysticfluid. Phrygian cap (normal anatomic variant). BILE DUCTS: No intrahepatic or extrahepatic ductal dilatation. SPLEEN: Normal size. No focal lesions. PANCREAS: No identified cystic or solid masses. No significant calcifications. No adjacent inflammation or peripancreatic fluidcollections. Pancreatic duct not dilated. ADRENALS: Normal. KIDNEYS/URINARY TRACT: Normal size. 1 mm nonobstructing right renalcalculus. No hydronephrosis or hydroureter. GI: No dilated bowel loops. No obvious wall thickening. Normalappendix. Mild colonic diverticulosis. PERITONEUM: No ascites or free air. RETROPERITONEUM: No mass or adenopathy. REPRODUCTIVE: The uterus is absent. VASCULATURE: No abdominal aortic aneurysm. MUSCULOSKELETAL: No acute fracture or aggressive osseous lesion. Leftiliac bone islands. L4-L5 severe facet arthropathy. OTHER: Unchanged small fat containing periumbilical hernia. IMPRESSION: 1. No acute finding in the abdomen or pelvis. 2. Unchanged 1 mm nonobstructing right renal calculus. THIS IS AN ELECTRONICALLY VERIFIED FINAL REPORT 07/05/2025 12:30 PM - Electronically signed by Sd New M.D. MM: MM Report ID: [id number] Reading Location: [place] [address] Nasir Swartz DO IMG CT PROCEDURES Final Res ult * (ABNORMAL) Urinalysis reflex to microscopic and culture Urine (07/05/2025 12:04 PM CDT) Color, ur Straw Yellow Comment:Testing performed by : [address] [address] Clarity, ur Clear Clear BEATRIZ Comment:Testing performed by : [address] [address] Specific gravity, ur 1.005 1.003 - 1.030 BEATRIZ Comment:Testing performed by : [address] [address] pH, urine 5.5 BEATRIZ Comment: Interpretive Data U rine pH is affected by diet, medications, systemic acid-base disturbances, and renal tubular function. pH may affect urinary stone formation. For example, urine pH below 6.0 may help reduce the tendency for calcium phosphate stones and pH greater than 6.0 may reduce the tendency for uric acid stone formation. Source: [facility] Current Interpretive Data was last revised on 2017 Testing performed by: [facility], [address] [place] [address], [place]., [address] Protein, ur ql Negative Negative BEATRIZ Comment:Testing performed by : [address] [address] Glucose, ur ql Negative Negative BEATRIZ Comment:Testing performed by : [address], [place]., [address] Ketones, ur Trace(A) Negative BEATRIZ Comment:Testing performed by : [address] [address] Bilirubin, ur Negative Negative BEATRIZ Comment:Testing performed by : [address], [place]., [address] Blood, ur Negative Negative BEATRIZ Comment:Testing performed by : [address], [place]., [address] Urobilinogen, ur <2.0 <2.0 mg/dL BEATRIZ Comment:Testing performed by : [address] [address] Nitrite, ur Negative Negative BEATRIZ Comment:Testing performed by : [address] [address] Leukocyte esterase, ur Negative Negative BEATRIZ Comment:Testing performed by : [address] [address] UA reflex comment Reflex conditions for microscopic UA and culture not met. BEATRIZ Comment:Testing performed by : [address] [address] Urine 07/05/2025 12:0 4 PM CDT 07/05/2025 12:07 PM CDT us Nasir Swartz DO LAB MICROBIOLOGY - GENERAL ORDERABLES Final Result BEATRIZ GOMEZ [address] [facility] Department [place] [address] * Lactate (07/05/2025 11:27 AM CDT) Lactate 1.4 0.7 - 2.0 mmol/L Comment:Testing performed by : [facility], [address] [place] [address]., [address] Blood 07/05/2025 11:2 7 AM CDT 07/05/2025 11:32 AM CDT Nasir Swartz DO LAB BLOOD ORDERABLES Final Result Performing Organization Address City/[facility]/ZIP Co de Phone Number BEATRIZ [address] [place] [address] * eGFR (07/05/2025 11:27 AM CDT) eGFR 80 >=60 mL/min/1. 73 m2 Comment: Interpretive Data Reference Interval Normal >/= 90 mL/min/1.73m2 Mildly decreased* 60 - 89 mL/min/1.73m2 Mildly to moderately decreased 45 - 59 mL/min/1.73m2 Moderately to severely decreased 30 - 44 mL/min/1.73m2 Severely decreased 15 - 29 mL/min/1.73m2 Kidney Failure < 15 mL/min/1.73m2 *Relative to young adult level Estimated glomerular filtration rate is determined by the 2020 CKD-EPI equation recommended by the National Kidney Foundation (A Unifying Approach to GFR Estimation: Recommendations of the NKF-ASK Task Force on Reassessing the Inclusion of Race in Diagnosing Kidney Disease, JASN 2020). The CKD-EPI equation should not be used for patients with unstable renal function and has not been validated in children and those over 70. Current interpretive data was last reviewed 2021. Testing performed by: [facility], [address] [place] [address]., [address] Blood 07/05/2025 11:2 7 AM CDT 07/05/2025 11:32 AM CDT Nasir Swartz DO LAB BLOOD ORDERABLES Final Result [facility] [address] [facility] Department [place] [address] * Differential, auto (07/05/2025 11:27 AM CDT) Neutrophil abs 2.82 1.50 - 6.50 K/cumm Comment:Testing performed by : [address] [address] Imm gran abs 0.01 0.00 - 0.10 K/cumm BEATRIZ Comment:Testing performed by : [address] [address] Lymphocyte abs 1.09 0.80 - 3.30 K/cumm BEATRIZ Comment:Testing performed by : [address] [address] Monocyte abs 0.34 0.20 - 0.80 K/cumm BEATRIZ Comment:Testing performed by : [address] [address] Eosinophil abs 0.03 0.00 - 0.50 K/cumm BEATRIZ Comment:Testing performed by : [address] [address] Basophil abs 0.03 0.00 - 0.10 K/cumm BEATRIZ Comment:Testing performed by : [address] [address] Neutrophil pct 65.3 % BEATRIZ Comment: Interpretive Data Percent cell count reference ranges are not reported, since discordance with absolute values may lead to misinterpretation of CBC data. Current Interpretive Data was last revised on 2018. Testing performed by: [address] [address] Imm gran pct 0.2 % BEATRIZ Comment: Interpretive Data Percent cell count reference ranges are not reported, since discordance with absolute values may lead to misinterpretation of CBC data. Current Interpretive Data was last revised on 2018. Testing performed by: [address] [address] Lymphocyte pct 25.2 % BEATRIZ Comment: Interpretive Data Percent cell count reference ranges are not reported, since discordance with absolute values may lead to misinterpretation of CBC data. Current Interpretive Data was last revised on 2018. Testing performed by: [address] [address] Monocyte pct 7.9 % BEATRIZ Comment: Interpretive Data Percent cell count reference ranges are not reported, since discordance with absolute values may lead to misinterpretation of CBC data. Current Interpretive Data was last revised on 2018. Testing performed by: [address] [address] Eosinophil pct 0.7 % BEATRIZ Comment: Interpretive Data Percent cell count reference ranges are not reported, since discordance with absolute values may lead to misinterpretation of CBC data. Current Interpretive Data was last revised on 2018. Testing performed by: [address] [address] Basophil pct 0.7 % BEATRIZ Comment: Interpretive Data Percent cell count reference ranges are not reported, since discordance with absolute values may lead to misinterpretation of CBC data. Current Interpretive Data was last revised on 2018. Testing performed by: [address] [address] Blood 07/05/2025 11:2 7 AM CDT 07/05/2025 11:32 AM CDT us Nasir Swartz DO LAB BLOOD ORDERABLES Final Result [facility] [address] [facility] Department [place] [address] * (ABNORMAL) CBC with auto differential (07/05/2025 11:27 AM CDT) WBC 4.32 3.80 - 9.90 K/cumm Comment:Testing performed by : [address] [address] Hgb 10.0(L) 11.9 - 15.5 g/dL BEATRIZ Comment:Testing performed by : [address] [address] Hct 28.9(L) 35.6 - 45.5 % BEATRIZ GOMEZ Comment:Testing performed by : [address] [address] Plt 167 150 - 400 K/cumm BEATRIZ GOMEZ Comment:Testing performed by : [address] [address] MPV 9.3 9.1 - 12.3 fL BEATRIZ GOMEZ Comment:Testing performed by : [address] [address] RBC 3.14(L) 3.90 - 5.20 M/cumm BEATRIZ GOMEZ Comment:Testing performed by : [address] [address] MCV 92.0 81.3 - 96.4 fL BEATRIZ Comment:Testing performed by : [address] [address] MCH 31.8 27.1 - 33.3 pg BEATRIZ GOMEZ Comment:Testing performed by : [address] [address] MCHC 34.6 32.3 - 35.7 g/dL BEATRIZ Comment:Testing performed by : [address] [address] RDW CV 12.8 11.1 - 14.9 % BEATRIZ Comment:Testing performed by : [address] [address] RDW SD 42.7 35.7 - 48.1 fL [facility]Z Comment:Testing performed by : [address] [address] NRBC abs 0.00 0.00 - 0.01 K/cumm BEATRIZ Comment:Testing performed by : [address] [address] Blood 07/05/2025 11:2 7 AM CDT 07/05/2025 11:32 AM CDT us Nasir Swartz DO LAB BLOOD ORDERABLES Final Result [facility] [address] [facility] Department [place] [address] * Lipase (07/05/2025 11:27 AM CDT) Lipase 36 10 - 99 Units/L Comment:Testing performed by : [address] [address] Blood 07/05/2025 11:2 7 AM CDT 07/05/2025 11:32 AM CDT Nasir Swartz DO LAB BLOOD ORDERABLES Final Result [facility] [address] [facility] Department [place] [address] * Comprehensive metabolic panel (07/05/2025 11:27 AM CDT) Pathologist [facility] Sodium 138 135 - 145 mmol/L Comment:Testing performed by : [address] [address] Potassium, pl 4.3 3.3 - 4.9 mmol/L BEATRIZ Comment:Testing performed by : [address] [address] Chloride 100 97 - 110 mmol/L BEATRIZ Comment:Testing performed by : [address] [address] CO2 24 22 - 32 mmol/L BEAT[facility]Z Comment:Testing performed by : [address] [address] Anion gap 14 2 - 15 mmol/L BEAT[facility]Z Comment:Testing performed by : [address] [address] BUN 19 6 - 25 mg/dL BEATRIZ Comment:Testing performed by : [address] [address] Creatinine 0.90 0.60 - 1.10 mg/dL BEATRIZ Comment:Testing performed by : [address] [address] Glucose 105 70 - 199 mg/dL BEATRIZ Comment: Interpretive Data Fasting glucose >/= 126 mg/dl is diagnostic for diabetes. Fasting is defined as no caloric intake for at least 8 hours. Fasting glucose between 100 mg/dl to 125 mg/dl is diagnostic of prediabetes. In a patient with classic symptoms of hyperglycemia or hyperglycemic crisis, a random glucose >/= 200 mg/dl is diagnostic for diabetes. In the absence of unequivocal hyperglycemia, results should be confirmed by repeat testing. The classification and Diagnosis of Diabetes Diabetes Care 2021; 46: S19-S40. Current interpretive data was last revised 2022. Testing performed by: [address] [address] Calcium 9.5 8.5 - 10.3 mg/dL BEATRIZ Comment:Testing performed by : [address] [address] Bilirubin, total 0.3 0.1 - 1.2 mg/dL BEAT[facility]Z Comment:Testing performed by : [address] [address] Protein, pl 7.3 6.5 - 8.5 g/dL BEATIRZ Comment:Testing performed by : [address] [address] Albumin 4.6 3.5 - 5.0 g/dL BEATRIZ Comment:Testing performed by : [address] [address] Alk phos 71 40 - 130 Units/L BEATRIZ Comment:Testing performed by : [address] [address] ALT 17 7 - 45 Units/L BEATRIZ Comment:Testing performed by : [address] [address] AST 22 10 - 45 Units/L BEATRIZ Comment:Testing performed by : [address] [address] Blood 07/05/2025 11:2 7 AM CDT 07/05/2025 11:32 AM CDT us Nasir Swartz DO LAB BLOOD ORDERABLES Final Result [facility] [address] [facility] Department of Laboratories [place], [place] [id number] * ECG 12 lead (07/05/2025 11:24 AM CDT) Pathologist [facility] Ventricular Rate EKG/Min 91 BPM [facility] Atrial Rate 91 BPM [facility] IL-Interval (MSEC) 162 ms [facility] QRS-Interval (MSEC) 74 ms [facility] QT-Interval (MSEC) 368 ms [facility] QTc 452 ms [facility] P [place] 48 degrees [facility] R [place] 66 degrees [facility] T [place] 40 degrees [facility] Diagnosis Normal sinus rhythm Low voltage QRS Borderline ECG When compared with ECG of 26-OCT-2023 12:33, T wave inversion now evident in Anterior leads Confirmed by HÉCTOR TROY M.D. ([id number]) on 07/05/2025 12:08:36 PM [facility] 07/05/2025 11:2 4 AM CDT 07/05/2025 12:08 PM CDT us Nasir Swartz DO ECG ORDERABLES Final Resul t Performing Organization Address City/[facility]/ZIP Co de Phone Number [facility] * POCT glucose (07/05/2025 11:19 AM CDT) Pathologist [facility] Glucose, POC 106 70 - 199 mg/dL Comment:Testing performed by : [facility], [address] [place] [address]., [address] Glucose comment 1 RN/MD Notified BEATRIZ Comment:Testing performed by : [address] [address] Blood 07/05/2025 11:1 9 AM CDT 07/05/2025 11:19 AM CDT us Notinfile Unknown LAB POCT ORDERABLES - DEVICE F inal Result BEATRIZ [address] [facility] Department [place] [address] * SCREENING MAMMOGRAM BILATERAL W PIERRE (06/12/2025 8:01 AM CDT) Anatomical Region Laterality Modality Breast Bilateral Mammography Impressions 06/14/2025 3:06 PM CDT Bilateral No evidence of malignancy in either breast. OVERALL BI-RADS FINAL ASSESSMENT: 1 - Negative RECOMMENDATION: Recommend bilateral annual screening mammography. If supplemental screening is desired for heterogeneously dense breast tissue, consider breast MRI every 1-2 years. If breast MRI cannot be performed, contrast-enhanced mammography is an alternative. Narrative 06/14/2025 3:06 PM CDT EXAMINATION: SCREENING MAMMOGRAM BILATERAL W PIERRE: 06/12/2025 COMPARISON: Prior outside mammogram dated 03/31/2022 TECHNIQUE: Mammography was performed with 2D and 3D digital breast tomosynthesis (DBT) images. CAD was utilized. BREAST PARENCHYMAL COMPOSITION: The breasts are heterogeneously dense, which may obscure small masses. FINDINGS: No suspicious mass, calcification, or architectural distortion is seen in either breast. There has been no suspicious interval change. Carie DAVIS IMG MAMMO PROCEDURES Fin al Result * EEG (06/03/2025 10:44 AM CDT) Anatomical Region Laterality Modality EEG Narrative 05/16/2025 1:30 PM CDT Lv Emerson MD 06/03/2025 12:44 PM Reason for exam: focal episodes Technical: This is a digitally recorded electroencephalogram. It was just over 21 minutes long. The international 10-20 electrode placement system is used for scalp electrode placement. Eighteen channels of scalp EEG are recorded. One channel was used for EOG. Another channel was used for ECG. The data are stored digitally and reviewed in reformatted montages for optimal display. Background: 9-10 hz alpha activity was seen. Maximal over the posterior head region. These activities are symmetric on both sides. They attenuated with eye opening. Description: No focal slowing was seen. No seizure like activity was observed during this recording. Patient entered into periods of drowsiness and light sleep. Hyperventilation was not performed due to patient's clinical condition. Photic stimulation was performed without any additional abnormalities. Impression: Normal EEG. No focal slowing, no seizure like activity was observed. Correlation with clinical findings is needed. Aristides Bell MD NEUROLOGY ORDERABLES Final Resul t * eGFR (04/29/2025 8:43 AM CDT) eGFR >90 >=60 mL/min/1. 73 m2 Comment: Interpretive Data Reference Interval Normal >/= 90 mL/min/1.73m2 Mildly decreased* 60 - 89 mL/min/1.73m2 Mildly to moderately decreased 45 - 59 mL/min/1.73m2 Moderately to severely decreased 30 - 44 mL/min/1.73m2 Severely decreased 15 - 29 mL/min/1.73m2 Kidney Failure < 15 mL/min/1.73m2 *Relative to young adult level Estimated glomerular filtration rate is determined by the 2020 CKD-EPI equation recommended by the National Kidney Foundation (A Unifying Approach to GFR Estimation: Recommendations of the NKF-ASK Task Force on Reassessing the Inclusion of Race in Diagnosing Kidney Disease, JASN 2020). The CKD-EPI equation should not be used for patients with unstable renal function and has not been validated in children and those over 70. Current interpretive data was last reviewed 2021. Testing performed by: [address] [address] Blood 04/29/2025 8:43 AM CDT 04/29/2025 11:21 AM CDT us Carie DAVIS LAB BLOOD ORDERABLES [facility] al Result Performing Organization Address City/State/[facility] Co de Phone Number [facility] [address] [facility] [place] [address] * Differential, auto (04/29/2025 8:43 AM CDT) Neutrophil abs 2.58 1.50 - 6.50 K/cumm Comment:Testing performed by : [address] [address] Imm gran abs 0.01 0.00 - 0.10 K/cumm BEATRIZ Comment:Testing performed by : [address] [address] Lymphocyte abs 1.15 0.80 - 3.30 K/cumm BEATRIZ Comment:Testing performed by : [address], [place]., [address] Monocyte abs 0.38 0.20 - 0.80 K/cumm BEATRIZ Comment:Testing performed by : [address], [place]., [address] Eosinophil abs 0.09 0.00 - 0.50 K/cumm [facility] Comment:Testing performed by : [address], [place]., [address] Basophil abs 0.03 0.00 - 0.10 K/cumm [facility] Comment:Testing performed by : [address] [address] Neutrophil pct 60.9 % [facility] Comment: Interpretive Data Percent cell count reference ranges are not reported, since discordance with absolute values may lead to misinterpretation of CBC data. Current Interpretive Data was last revised on 2018. Testing performed by: [address] [address] Imm gran pct 0.2 % [facility] Comment: Interpretive Data Percent cell count reference ranges are not reported, since discordance with absolute values may lead to misinterpretation of CBC data. Current Interpretive Data was last revised on 2018. Testing performed by: [address] [address] Lymphocyte pct 27.1 % [facility] Comment: Interpretive Data Percent cell count reference ranges are not reported, since discordance with absolute values may lead to misinterpretation of CBC data. Current Interpretive Data was last revised on 2018. Testing performed by: [address] [address] Monocyte pct 9.0 % [facility] Comment: Interpretive Data Percent cell count reference ranges are not reported, since discordance with absolute values may lead to misinterpretation of CBC data. Current Interpretive Data was last revised on 2018. Testing performed by: [address] [address] Eosinophil pct 2.1 % [facility] Comment: Interpretive Data Percent cell count reference ranges are not reported, since discordance with absolute values may lead to misinterpretation of CBC data. Current Interpretive Data was last revised on 2018. Testing performed by: [address] [address] Basophil pct 0.7 % [facility]AT[facility]Z Comment: Interpretive Data Percent cell count reference ranges are not reported, since discordance with absolute values may lead to misinterpretation of CBC data. Current Interpretive Data was last revised on 2018. Testing performed by: [address] [address] Blood 04/29/2025 8:43 AM CDT 04/29/2025 11:23 AM CDT Carie DAVIS LAB BLOOD ORDERABLES Fin al Result Performing Organization Address [facility] Co de Phone Number [address] [place] [address] * Thyroid Function [place] (04/29/2025 8:43 AM CDT) Pathologist [facility] TSH 1.91 0.30 - 4.20 mcIUnit/mL Comment:Testing performed by : [address] [address] Blood 04/29/2025 8:43 AM CDT 04/29/2025 11:21 AM CDT Carie DAVIS LAB BLOOD ORDERABLES Fin al Result Performing Organization Address [facility] Co de Phone Number [address] [address] * CBC with auto differential (04/29/2025 8:43 AM CDT) WBC 4.24 3.80 - 9.90 K/cumm Comment:Testing performed by : [address] [address] [address] Hgb 13.1 11.9 - 15.5 g/dL BEATRIZ GOMEZ Comment:Testing performed by : [address] [address] Hct 38.1 35.6 - 45.5 % BEATRIZ Comment:Testing performed by : [address] [address] Plt 242 150 - 400 K/cumm BEATRIZ Comment:Testing performed by : [address] [address] MPV 9.6 9.1 - 12.3 fL BEATRIZ Comment:Testing performed by : [address] [address] RBC 4.16 3.90 - 5.20 M/cumm BEATRIZ Comment:Testing performed by : [address] [address] MCV 91.6 81.3 - 96.4 fL BEATRIZ Comment:Testing performed by : [address] [address] MCH 31.5 27.1 - 33.3 pg BEATRIZ Comment:Testing performed by : [address] [address] MCHC 34.4 32.3 - 35.7 g/dL BEATRIZ Comment:Testing performed by : [address] [address] RDW CV 13.5 11.1 - 14.9 % BEATRIZ Comment:Testing performed by : [address] [address] RDW SD 45.6 35.7 - 48.1 fL BEATRIZ Comment:Testing performed by : [address] [address] NRBC abs 0.00 0.00 - 0.01 K/cumm BEATRIZ Comment:Testing performed by : [address] [address] Blood 04/29/2025 8:43 AM CDT 04/29/2025 11:23 AM CDT us Carie DAVIS LAB BLOOD ORDERABLES Fin al Result BEATRIZ [address] [facility] Department [place] [address] * Vitamin D 25 hydroxy (04/29/2025 8:43 AM CDT) Pathologist [facility] Vitamin D 25-OH 46.0 30.0 - 80.0 ng/mL Blood 04/29/2025 8:43 AM CDT 04/29/2025 12:19 PM CDT Carie DAVIS LAB BLOOD ORDERABLES Fin al Result Performing Organization Address [facility] Co de Phone Number [address] [place] [address] * Hemoglobin A1c (04/29/2025 8:43 AM CDT) [facility] Hgb A1C 4.9 4.0 - 5.6 % Comment:Testing performed by : [address] [address] Estimated Average Glucose 94 mg/dL BEATRIZ Comment: The ADA recommends reporting an estimated Average Glucose (eAG) with all Hemoglobin A1c results using the equation derived from a study of 507 normal and diabetic adults. Minority populations were underrepresented and children were not included. (Diabetes Care 31:3279-2192, 2008). The eAG is not equivalent to a fasting glucose. Testing performed by: [address] [address] Blood 04/29/2025 8:43 AM CDT 04/29/2025 11:23 AM CDT Carie DAVIS LAB BLOOD ORDERABLES Fin al Result Performing Organization Address [facility] Co de Phone Number [place] [phone] [place] [address] * Vitamin B12 (04/29/2025 8:43 AM CDT) [facility] Vitamin B12 811 230 - 1,250 pg/mL Comment:Testing performed by : [address] [address] Blood 04/29/2025 8:43 AM CDT 04/29/2025 11:21 AM CDT us Carie DAVIS LAB BLOOD ORDERABLES Fin al Result BEATRIZ GOMEZ [address] [facility] Department [place] [address] * (ABNORMAL) Lipid panel (04/29/2025 8:43 AM CDT) Cholesterol 216(H) 30 - 199 mg/dL Comment: Interpretive Data Ages < or = 19 years Acceptable: <170 mg/dL Borderline high: 170-199 mg/dL High: >or= 200 mg/dL Ages > or = 20 years Desirable: <200 mg/dL Borderline high: 200-239 mg/dL High: >or= 240 mg/dL Literature References: 1. Expert Panel on Integrated Guidelines for Cardiovascular Health and Risk Reduction in Children and Adolescents. Pediatrics 2011;128:S213 2. NCEP Expert Panel. Circulation 2004;110:227 Current Interpretive Data was last revised on 2018. Testing performed by: [address] [address] Triglycerides 66 <=149 mg/dL BEATRIZ Comment: Interpretive Data Ages < or = 9 years Acceptable: <75 mg/dL Borderline high: 75-99 mg/dL High: >or= 100 mg/dL Ages 10 to 20 years Acceptable: <90 mg/dL Borderline high: 90-129 mg/dL High: >or= 130 mg/dL Ages > or = 20 years Desirable: <150 mg/dL Borderline high: 150-199 mg/dL High: 200-499 mg/dL Very high: >or= 499 mg/dL Literature References: 1. Expert Panel on Integrated Guidelines for Cardiovascular Health and Risk Reduction in Children and Adolescents. Pediatrics 2011;128:S213 2. NCEP Expert Panel. Circulation 2004;110:227 Current Interpretive Data was last revised on 2018. Testing performed by: [address] [address] HDL 80 >=40 mg/dL BEATRIZ Comment: Interpretive Data Ages < or = 19 years Acceptable: >45 mg/dL Borderline low: 40-45 mg/dL Low: <40 mg/dL Ages > or = 20 years Desirable: >or= 60 mg/dL Low: <40 mg/dL Literature References: 1. Expert Panel on Integrated Guidelines for Cardiovascular Health and Risk Reduction in Children and Adolescents. Pediatrics 2011;128:S213 2. NCEP Expert Panel. Circulation 2004;110:227 Current Interpretive Data was last revised on 2018. Testing performed by: [address] [address] LDL, calculated 124 <=129 mg/dL BEATRIZ Comment: Interpretive Data Ages < or = 19 years Acceptable: <110 mg/dL Borderline high: 110-129 mg/dL High: >or= 130 mg/dL Ages > or = 20 years Optimal: <100 mg/dL Near optimal: 100-129 mg/dL Borderline high: 130-159 mg/dL High: >160 mg/dL Calculated using the Martell LDL-C estimating equation. This equation was implemented on 2024. Prior to this date LDL-C was estimated using the Friedewald equation. Literature References: 1. Expert Panel on Integrated Guidelines for Cardiovascular Health and Risk Reduction in Children and Adolescents. Pediatrics 2011;128:S213 2. NCEP Expert Panel. Circulation 2004;110:227 3. Martell Fuller et al. CINDI Cardiol. 2020 February 14;5(5):540-548. doi: 10.1001/jamacardio.2020.0013 Current Interpretive Data was last revised on 2024. Testing performed by: [address] [address] Non-HDL Cholesterol 136 mg/dL BEATRIZ Comment: Interpretive Data Ages < or = 19 years Acceptable: <120 mg/dL Borderline high: 120-144 mg/dL High: >145 mg/dL Ages > or = 20 years When triglycerides are >200 mg/dL, Non-HDL cholesterol is a secondary target of therapy with treatment goals that are 30 mg/dL greater than the LDL cholesterol target. Literature References: 1. Expert Panel on Integrated Guidelines for Cardiovascular Health and Risk Reduction in Children and Adolescents. Pediatrics 2011;128:S213 2. NCEP Expert Panel. Circulation 2004;110:227 Current Interpretive Data was last revised on 2018. Testing performed by: [address] [address] Chol/HDL ratio 3 BEATRIZ Comment:Testing performed by : [address] [address] Blood 04/29/2025 8:43 AM CDT 04/29/2025 11:21 AM CDT us Carie DAVIS LAB BLOOD ORDERABLES Fin al Result BEATRIZ [address] [facility] Department [place] [address] * Comprehensive metabolic panel (04/29/2025 8:43 AM CDT) Sodium 138 135 - 145 mmol/L Comment:Testing performed by : [address] [address] Potassium, pl 4.1 3.3 - 4.9 mmol/L BEATRIZ Comment:Testing performed by : [address] [address] Chloride 104 97 - 110 mmol/L BEATRIZ Comment:Testing performed by : [address] [address] CO2 25 22 - 32 mmol/L BEATRIZ Comment:Testing performed by : [address] [address] Anion gap 9 2 - 15 mmol/L BEATRIZ Comment:Testing performed by : [address] [address] BUN 15 6 - 25 mg/dL BEATRIZ Comment:Testing performed by : [address] [address] Creatinine 0.75 0.60 - 1.10 mg/dL BEATRIZ Comment:Testing performed by : [address] [address] Glucose 111 70 - 199 mg/dL BEATRIZ Comment: Interpretive Data Fasting glucose >/= 126 mg/dl is diagnostic for diabetes. Fasting is defined as no caloric intake for at least 8 hours. Fasting glucose between 100 mg/dl to 125 mg/dl is diagnostic of prediabetes. In a patient with classic symptoms of hyperglycemia or hyperglycemic crisis, a random glucose >/= 200 mg/dl is diagnostic for diabetes. In the absence of unequivocal hyperglycemia, results should be confirmed by repeat testing. The classification and Diagnosis of Diabetes Diabetes Care 2021; 46: S19-S40. Current interpretive data was last revised 2022. Testing performed by: [address] [address] Calcium 9.3 8.5 - 10.3 mg/dL BEATRIZ Comment:Testing performed by : [address] [address] Bilirubin, total <0.2 0.1 - 1.2 mg/dL BEATRIZ Comment:Testing performed by : [address] [address] Protein, pl 7.0 6.5 - 8.5 g/dL BEATRIZ Comment:Testing performed by : [address] [address] Albumin 4.3 3.5 - 5.0 g/dL BEATRIZ Comment:Testing performed by : [address] [address] Alk phos 61 40 - 130 Units/L BEATRIZ Comment:Testing performed by : [address] [address] ALT 17 7 - 45 Units/L BEATRIZ Comment:Testing performed by : [address] [address] AST 22 10 - 45 Units/L BEATRIZ Comment:Testing performed by : [address] [address] Blood 04/29/2025 8:43 AM CDT 04/29/2025 11:21 AM CDT us Carie DAVIS LAB BLOOD ORDERABLES Fin al Result [facility] [address] [facility] Department [place] [address] * Serum Hepatitis C ab (02/19/2014 9:59 AM CDT) HCV ab Negative NEG HISTORICAL RESULTS Comment: Interpretive Data If confirmation is required, call Laboratory Customer Service to request sample to be sent to [facility] for Hepatitis C Virus (HCV) RNA Detection and Quantitation by Real-Time Reverse Farm Mechanic Apprentice-PCR (RT-PCR). Current interpretive data was last revised on 2012 Serum 02/19/2014 9:59 AM CDT Narrative HISTORICAL RESULTS - 02/20/2014 6:20 AM CDT Test performed at [facility], [address] [facility],, [place], [place], [place], [address]. Ora Toney MD LAB BLOOD ORDERABLES Final Result HISTORICAL RESULTS from Last 3 Months or Most Recently Relevant to Health Maintenance Insurance [employer] OPEN ACCESS [employer] OOS Care Teams Book Jogger Relationship Specialty Start Date End Date Carie Rush PA [address] [place] [address] PCP - General Family Medicine 04/29/25 Jonah Ceron DO [address] [facility] MEDICAL ONCOLOGY, [address] [place] [address] Medical Oncologist/Salvage Winder And Inspector Hematology and Oncology 12/24/20 Jonah Roe III, MD [address] [place] [address] Consulting Physician Rheumatology 05/13/21
--- OUTSIDE RECORDS SUMMARY | 2025-07-11 07:55 | XMS_ITS | Encounter Summary ---
Author Organization [facility] Facility Care Team Providers Care Citrix Lead Name Role Phone Tyson Vázquez MD Primary Care Provid er Jonah Ceron DO Unavailable [phone] Bhupinder NICHOLS MD, Jonah Caraballo Unavailable [phone] Carie Rush Primary Care Provider + Encounter Details Date Type Department Care Team (Latest Contact Info) Description 04/06/2017 Orders Only [facility] CLINCONV ProviderLogan MD [address] [place] [address] Social History Tobacco Use Types Packs/Day Years Used Date Smoking Tobacco: Never Alcohol Use Standard Drinks/Week Comments Yes 0 (1 standard drink = 0.6 oz pur e alcohol) Comments Unknown Sex and Gender Information Value Date Recorded Sex Assigned at Not on file Legal Sex Female 3:14 AM ELEMENTARY LIBRARIAN Gender Identity Female 03/20/2018 4:57 PM CDT Sexual Orientation Not on file documented as of this encounter Plan of Treatment Not on file documented as of this encounter Procedures Procedure Name Priority Date/Time Associated Diagnosis Comments CARDIOLOGY REPORT 04/14/2017 12: 00 AM CDT documented in this encounter Results * CARDIOLOGY REPORT (04/14/2017 12:00 AM CDT) Anatomical Region Laterality Modality Other Narrative 04/14/2017 12:00 AM CDT Ordered by an unspecified provider. us Historical Provider CV CARDIAC SERVICES PROCE KELLEE Final Result documented in this encounter Visit Diagnoses Not on filedocumented in this encounter Care Teams Citrix Lead Relationship Specialty Start Date End Date Tyson Vázquez MD [address] [place] [address] PCP - General 10/08/15 04/28/25 Carie Rush PA [address] [facility] [address] [place] [address] PCP - General Family Medicine 04/29/25 Jonah Ceron DO [address] [place] [address] MEDICAL ONCOLOGY, [facility] [address] [place], [place] [id number] Medical Oncologist/Fashion Patternmaker Hematology and Oncology 12/24/20 Jonah Roe III, MD [address] [place] [address] Consulting Physician Rheumatology 05/13/21 documented as of this encounter
--- OUTSIDE RECORDS SUMMARY | 2025-07-11 07:55 | XMS_ITS | Clinical Summary ---
Author Organization [facility] Address [address] [place] [address] Care Team Providers Care Real Estate Agent Name Role Phone Unavailable Primary Care Provider Unavailabl e Medications ondansetron (ZOFRAN ODT) 4 mg Tablet, Rapid Dissolve Take 1 Tablet (4 mg) by mouth every 8 hours as needed for Nausea/Emesis . Dissolve tablet on top of tongue, then swallow with saliva. 15 Tablet 12/10/2022 Active hydrOXYzine HCL (ATARAX) 25 mg tablet Take 1 Tablet (25 mg) by mouth 3 times daily as needed for Anxiety. 15 Tablet 12/10/2022 Active buprenorphine-n alOXone (SUBOXONE FILM) 8-2 mg filmIndications :Opioid use disorder, severe, in early remission (CMS/HCC) 1/2 strip bid x 2 weeks 14 Strip 02/11/2023 Active cloNIDine HCL (CATAPRES) 0.1 mg tablet Take 1 Tablet (0.1 mg) by mouth 2 times daily as needed for Other (See Comment) (anxiety). 15 Tablet 02/24/2023 Active Social History Tobacco Use Types Packs/Day Years Used Date Smoking Tobacco: Never Assessed Comments Unknown Sex and Gender Information Value Date Recorded Sex Assigned at Not on file Legal Sex Female 7:23 AM PRINCIPAL ANDROID DEVELOPER Gender Identity Not on file Sexual Orientation Not on file Plan of Treatment Health Maintenance Due Date Last Done Comments DTAP/TDAP/TD VACCINES (1 - Tdap) 1997 HEPATITIS B VACCINES (1 of 3 - 19+ 3-dose series) 1997 BREAST CANCER SCREENING 2018 COLORECTAL SCREENING 2023 Colorectal Cancer Screening 2023 FIT-DNA Q 3 years 2023 FIT/FOBT Q 1 year 2023 Flex Sig/CT Colonography Q 5 years 2023 INFLUENZA VACCINE (#1) 2025 HPV VACCINES Aged Out No longer eligi ble based on patient's age to complete this topic Insurance [facility] OPEN ACCESS HMO
--- OUTSIDE RECORDS SUMMARY | 2025-07-11 07:55 | XMS_ITS | Encounter Summary ---
Author Organization [facility] Healthcare Address [address] [place] [address] Care Team Providers Care Android Ui Developer Name Role Phone OsmanyJonah DO Unavailable Bhupinder NICHOLS MD, Jonah Caraballo Unavailable Carie Rush Primary Care Provider + Reason for Visit * Reason Onset Date Comments Symptom Based Call 06/11/2025 Encounter Details Date Type Department Care Team (Late st Contact Info) Description 06/11/2025 Telephone [facility] Medical Group Family Medicine [address] [phone] Carie Rush PA [address] [place] [address] Symptom Based Call Social History Tobacco Use Types Packs/Day Years Used Date Smoking Tobacco: Former Cigarettes 0.1 2.7 S tarted: 2022 Smokeless Tobacco: Never Comments:social and when dri nks alcohol Alcohol Use Standard Drinks/Week Comments Yes 1 (1 standard drink = 0.6 oz pur e alcohol) social PHQ-2 Answer Date Recorded PHQ-2 Total Score (If total score is 3 or more points, staff should administer the PHQ-9) 6 06/11/2025 PHQ-9 Answer Date Recorded PHQ-9 Total Score 18 06/11/2025 AUDIT-C Answer Date Recorded Q1: How often do you have a drink containing alc ohol? 2-4 times a month 06/11/2025 Q2: How many drinks containi ng alcohol do you have on a typical day when you are drinking? 1 or 2 06/11/2025 Q3: How often do you have si x or more drinks on one occasion? Less than monthly 06/11/2025 Personal Safety Answer Date Recorded Have you ever been in or are you currently in a harmful physical or emotional relationship or is someone making you feel afraid or unsafe? Denies 10/26/2023 Comments No Sex and Gender Information Value Date Recorded Sex Assigned at Not on file Legal Sex Female 3:14 AM DIGITAL MEDIA MANAGER Gender Identity Female 03/20/2018 4:57 PM CDT Sexual Orientation Not on file documented as of this encounter Functional Status * AUDIT-C Score Answer Date of Assessment Author 3 06/11/2025 10:57 AM CDT Bree Doan MA * Question Answer Date of Assessment Author Q1: How often do you have a drink containing alcohol? 2-4 times a month 06/11/2025 10:57 AM CDT Bree Doan MA Q2: How many drinks containing alcohol do you have on a typical day when you are drinking? 1 or 2 06/11/2025 10:57 AM CDT Bree Doan MA Q3: How often do you have six or more drinks on one occasion? Less than monthly 06/11/2025 10:57 AM CDT Bree Doan MA documented as of this encounter Miscellaneous Notes * Telephone Encounter - Lidia Herron LPN - 06/11/2025 10:13 AM CDT Pt scheduled today at 11 am. * Telephone Encounter - Marleni Booker MA - 06/11/2025 7:43 AM CDT Symptom Based Call Chief Complaint(s): Right Eye- Conjunctivitis. Redness, Itchiness, Drainage Duration: Intermittent & ongoing for a couple months What type of symptom(s) is the patient experiencing? Non-Emergent. Is this a new or reoccurring symptom(s)? reoccurring What have you tried to help your symptom(s)? polymyxin B-trimethoprim (POLYTRIM) ophthalmic solution Administer 2 drops into the right eye 4 (four) times a day for 7 days - Last sent out on 05/20/25 Why was appointment not scheduled? Patient seeking care without an appointment; appointment was offered by . Additional Comments: Patient has left over eye drops from 05/20/25 and is wanting to know if she should continue the drops and/or have alternative drops sent to pharmacy on file. Also, patient mentioned never having pink eye in her left eye and is curious if it could be something else. Patient seeking providers recommendations with a call back please. Does message need to be routed? Yes-Action Needed documented in this encounter Plan of Treatment Not on file documented as of this encounter Visit Diagnoses Not on filedocumented in this encounter Care Teams Android Ui Developer Relationship Specialty Start Date End Date Carie Rush PA [address] [facility] [address] [place] [address] PCP - General Family Medicine 04/29/25 Jonah Ceron DO [address] [place] [address] MEDICAL ONCOLOGY, [facility] [address] [place] [address] Medical Oncologist/Mandarin Speaking Nanny Hematology and Oncology 12/24/20 Jonah Roe III, MD [facility] [place] [address] Consulting Physician Rheumatology 05/13/21 documented as of this encounter
--- OUTSIDE RECORDS SUMMARY | 2025-07-11 07:55 | XMS_ITS | Encounter Summary ---
Author Organization [facility] Facility Care Team Providers Care Commercial Drone Pilot Name Role Phone Tyson Vázquez MD Primary Care Provid er Jonah Ceron DO Unavailable [phone] Bhupinder NICHOLS MD, Jonah Caraballo Unavailable [phone] Carie Rush Primary Care Provider + Encounter Details Date Type Department Care Team (Latest Contact Info) Description 09/01/2016 Orders Only [facility] CLINCONV Provider, MD [place] [address] [place] [address] Social History Tobacco Use Types Packs/Day Years Used Date Smoking Tobacco: Never Alcohol Use Standard Drinks/Week Comments Yes 0 (1 standard drink = 0.6 oz pur e alcohol) Comments Unknown Sex and Gender Information Value Date Recorded Sex Assigned at Not on file Legal Sex Female 3:14 AM DROP FORGER Gender Identity Female 03/20/2018 4:57 PM CDT Sexual Orientation Not on file documented as of this encounter Plan of Treatment Not on file documented as of this encounter Procedures Procedure Name Priority Date/Time Associated Diagnosis Comments SCAN - LABS 09/01/2016 12:00 AM DROP FORGER SCAN - LABS 09/01/2016 12:00 AM DROP FORGER documented in this encounter Results * SCAN - LABS (09/01/2016 12:00 AM DROP FORGER) Narrative 09/01/2016 12:00 AM DROP FORGER Ordered by an unspecified provider. us Historical Provider MD Final Res ult * SCAN - LABS (09/01/2016 12:00 AM DROP FORGER) Narrative 09/01/2016 12:00 AM DROP FORGER Ordered by an unspecified provider. us Historical Provider Final Res ult documented in this encounter Visit Diagnoses Not on filedocumented in this encounter Care Teams Commercial Drone Pilot Relationship Specialty Start Date End Date Tyson Vázquez MD [address] [place] [address] PCP - General 10/08/15 04/28/25 Carie Rush PA [address] [place] [address] PCP - General Family Medicine 04/29/25 Jonah Ceron DO [address] [facility] MEDICAL ONCOLOGY, [address] [place] [address] Medical Oncologist/Polytechnic Teacher Hematology and Oncology 12/24/20 Jonah Roe III, MD [address] [place] [address] Consulting Physician Rheumatology 05/13/21 documented as of this encounter
--- OUTSIDE RECORDS SUMMARY | 2025-07-11 07:55 | XMS_ITS | Encounter Summary ---
Author Organization [facility] Healthcare Address [address] [place] [address] Care Team Providers Care Oyster Sorter Name Role Phone Osmany, John Ephraim DO Unavailable [phone] Bhupinder NICHOLS MD, Jonah Caraballo Unavailable [phone] Carie Rush Primary Care Provider + Reason for Visit * Reason Onset Date Comments Test Results 06/04/2025 EEG results Encounter Details Date Type Department Care Team (Late st Contact Info) Description 06/04/2025 Results Follow-Up [facility] Medical Group Neurology [address] [place] [phone] Chaya Strickland MA EEG Social History Tobacco Use Types Packs/Day Years Used Date Smoking Tobacco: Former Cigarettes 0.1 2.7 S tarted: 2022 Smokeless Tobacco: Never Comments:social and when dri nks alcohol Alcohol Use Standard Drinks/Week Comments Yes 3 (1 standard drink = 0.6 oz pur e alcohol) social AUDIT-C Answer Date Recorded Q1: How often do you have a drink containing alc ohol? Monthly or less 05/13/2025 Q2: How many drinks containi ng alcohol do you have on a typical day when you are drinking? 3 or 4 05/13/2025 Q3: How often do you have si x or more drinks on one occasion? Never 05/13/2025 PHQ-2 Answer Date Recorded PHQ-2 Total Score (If total score is 3 or more points, staff should administer the PHQ-9) 5 04/29/2025 PHQ-9 Answer Date Recorded PHQ-9 Total Score 13 04/29/2025 Personal Safety Answer Date Recorded Have you ever been in or are you currently in a harmful physical or emotional relationship or is someone making you feel afraid or unsafe? Denies 10/26/2023 Comments No Sex and Gender Information Value Date Recorded Sex Assigned at Not on file Legal Sex Female 3:14 AM RECORDS MANAGEMENT COORDINATOR Gender Identity Female 03/20/2018 4:57 PM CDT Sexual Orientation Not on file documented as of this encounter Miscellaneous Notes * Telephone Encounter - Chaya Strickland MA - 06/04/2025 10:50 AM CDT Patient was informed that her EEG was normal, no concern for seizures. * Telephone Encounter - Chaya Strickland MA - 06/04/2025 10:49 AM CDT ----- Message from Aristides Bell MD sent at 06/04/2025 8:34 AM CDT ----- Please let her know that her EEG result is overall normal. No concern for seizure. ----- Message ----- From: Lv Emerson MD Sent: 06/03/2025 12:44 PM CDT To: Aristides Bell MD documented in this encounter Plan of Treatment Not on file documented as of this encounter Visit Diagnoses Not on filedocumented in this encounter Care Teams Oyster Sorter Relationship Specialty Start Date End Date Carie Rush PA [address] [place] [address] PCP - General Family Medicine 04/29/25 Jonah Ceron DO [address] [facility] MEDICAL ONCOLOGY, [address] [place] [address] Medical Oncologist/Helper Coordinator Hematology and Oncology 12/24/20 Jonah Roe III, MD [address] [place] [address] Consulting Physician Rheumatology 05/13/21 documented as of this encounter
--- OUTSIDE RECORDS SUMMARY | 2025-07-11 07:55 | XMS_ITS | Encounter Summary ---
Author Organization [facility] Facility Care Team Providers Care Sheet Metal Former Name Role Phone Tyson Vázquez MD Primary Care Provid er Jonah Ceron DO Unavailable [phone] Bhupinder NICHOLS MD, Jonah Caraballo Unavailable [phone] Carie Rush Primary Care Provider + Encounter Details Date Type Department Care Team (Latest Contact Info) Description 04/14/2017 Orders Only [facility] CLINCONV ProviderLogan MD [address] [place] [address] Social History Tobacco Use Types Packs/Day Years Used Date Smoking Tobacco: Never Alcohol Use Standard Drinks/Week Comments Yes 0 (1 standard drink = 0.6 oz pur e alcohol) Comments Unknown Sex and Gender Information Value Date Recorded Sex Assigned at Not on file Legal Sex Female 3:14 AM CHICK GRADER Gender Identity Female 03/20/2018 4:57 PM CDT Sexual Orientation Not on file documented as of this encounter Plan of Treatment Not on file documented as of this encounter Procedures Procedure Name Priority Date/Time Associated Diagnosis Comments CARDIOLOGY REPORT 04/15/2017 12: 00 AM CDT documented in this encounter Results * CARDIOLOGY REPORT (04/15/2017 12:00 AM CDT) Anatomical Region Laterality Modality Other Narrative 04/15/2017 12:00 AM CDT Ordered by an unspecified provider. us Historical Provider CV CARDIAC SERVICES PROCE KELLEE Final Result documented in this encounter Visit Diagnoses Not on filedocumented in this encounter Care Teams Sheet Metal Former Relationship Specialty Start Date End Date Tyson Vázquez MD [address] [place] [address] PCP - General 10/08/15 04/28/25 Carie Rush PA [address] [facility] [address] [place] [address] PCP - General Family Medicine 04/29/25 Jonah Ceron DO [address] [place] [address] MEDICAL ONCOLOGY, [facility] [address] [place], [place] [id number] Medical Oncologist/Interventional Radiology Technologist Hematology and Oncology 12/24/20 Jonah Roe III, MD [address] [place] [address] Consulting Physician Rheumatology 05/13/21 documented as of this encounter
--- OUTSIDE RECORDS SUMMARY | 2025-07-11 07:55 | XMS_ITS | Encounter Summary ---
Author Organization [facility] Facility Care Team Providers Care Nylon Winder Name Role Phone Tyson Vázquez MD Primary Care Provid er Jonah Ceron DO Unavailable [phone] Bhupinder NICHOLS MD, Jonah Caraballo Unavailable [phone] Carie Rush Primary Care Provider + Encounter Details Date Type Department Care Team (Latest Contact Info) Description 04/16/2017 Orders Only [facility] CLINCONV ProviderLogan MD [address] [place] [address] Social History Tobacco Use Types Packs/Day Years Used Date Smoking Tobacco: Never Alcohol Use Standard Drinks/Week Comments Yes 0 (1 standard drink = 0.6 oz pur e alcohol) Comments Unknown Sex and Gender Information Value Date Recorded Sex Assigned at Not on file Legal Sex Female 3:14 AM HOSPITAL CLERK Gender Identity Female 03/20/2018 4:57 PM CDT [...] on filedocumented in this encounter Care Teams Nylon Winder Relationship Specialty Start Date End Date Tyson Vázquez MD [address] [place] [address] PCP - General 10/08/15 04/28/25 Carie Rush PA [address] [facility] [address] [place] [address] PCP - General Family Medicine 04/29/25 Jonah Ceron DO [address] [place] [address] MEDICAL ONCOLOGY, [facility] [address] [place], [place] [id number] Medical Oncologist/Credit Adjuster Hematology and Oncology 12/24/20 Jonah Roe III, MD [address] [place] [address] Consulting Physician Rheumatology 05/13/21 documented as of this encounter
--- OUTSIDE RECORDS SUMMARY | 2025-07-11 07:55 | XMS_ITS | Clinical Summary ---
Author Organization [facility] Address [address] [place] [address] Care Team Providers Care Audit Intern Name Role Phone Tyson Vázquez MD Primary Care Provider [phone] Source Comments [facility],non-owned Affiliates and Associated Physician Practices is amultiple site organization consisting of ambulatory clinics and hospital sitesin [place], [place] and [place]. This disclosure is being madepursuant to the Care Everywhere program and may not contain all information available regarding this patient. Last updated 18.[facility] Allergies Active Allergy Reactions Criticality Noted Date Comments Contrast-Iodinated Agents Fo r Ct/Other Anaphylaxis High 12/20/2014 Hydromorphone 05/26/2015 Muscle spasms Morphine 05/26/2015 Muscle spasms Tramadol Itching 03/05/2011 itching Medications * This document contains information received from the source organization and may not represent a complete record from that organization. * Be aware that medications may not be up to date on this document. Alwaysverify current medications with the patient. FLUoxetine (PROZAC) 10 MG capsule Take 40 mg by mouth once daily. Active clonazePAM (KLONOPIN) 0.5 MG tablet Take 0.25 mg by mouth as needed. Active polyethylene glycol 3350 (MIRALAX) packet Take 17 g by mouth once daily. Active fentaNYL (DURAGESIC) 12 MCG/HR patch Apply 1 Patch to skin every 3 days. Do not apply heat over patch. Active zolpidem (AMBIEN) 10 MG tablet Take 10 mg by mouth nightly as needed for Insomnia. Active ibuprofen (MOTRIN) 600 MG tablet Take 1 Tab by mouth every 6 hours. 120 Tab 0 12/24/2014 Active docusate sodium (COLACE) 100 MG capsuleIndicatio ns:Preoperative examination Take 1 Cap by mouth 2 times daily. 60 Cap 0 12/24/2014 Active phenazopyridine (PYRIDIUM) 200 MG tablet Take 1 Tab by mouth 3 times daily, after meals. 90 Tab 0 12/24/2014 Active simethicone (MYLICON) 80 MG chew tablet Take 1 Tab by mouth 4 times daily as needed for Gas Pain. 120 Tab 0 12/24/2014 Active cyclobenzaprine (FLEXERIL) 10 MG tablet Take 1 Tab by mouth 3 times daily as needed for Muscle Spasms. 30 Tab 0 12/24/2014 Active HYDROmorphone (DILAUDID) 2 MG tablet Take 1 Tab by mouth every 4 hours as needed for Pain. 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 Depressive disorder, not elsewhere classified Generalized anxiety disorder 05/27/2015 labor 03/05/2011 Depression 03/05/2011 H/O: section 03/05/2011 Subchorionic hemorrhage 03/05/2011 abnormality in , antepartum 03/05 Overview (03/05/2011): Mild bilateral hydronephrosis Isolated intracardiac echogenic focus Immunizations Immunization Administration Dates Next Due Rho D Immune Globulin 03/07/2011 Family History Medical History Relation Name Comments Hypertension Father Relation Name Status Comments Father Social History Tobacco Use Types Packs/Day Years Used Date Smoking Tobacco: Former Cigarettes Q uit: 10/27/2011 Smokeless Tobacco: Never Tobacco Cessation:Counseling Given: Yes Alcohol Use Standard Drinks/Week Comments No 0 (1 standard drink = 0.6 oz pur e alcohol) occasional Comments No Sex and Gender Information Value Date Recorded Sex Assigned at Not on file 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 Gender Identity Not on file Sexual Orientation Not on file Last Filed Vital Signs Vital Sign Reading Time Taken Comments Blood Pressure 104/62 08/11/2015 5:59 PM CDT Pulse 95 08/11/2015 5:59 PM CDT Temperature 37.2 C (98.9 F) 08/11/2015 1:10 PM CDT Respiratory Rate 18 08/11/2015 1:10 PM CDT Oxygen Saturation 100% 08/11/2015 1:10 PM CDT Inhaled Oxygen Concentration - - Weight 77.1 kg (170 lb) 08/11/2015 1:10 PM CDT Height 165.1 cm (5' 5) 08/11/2015 1:10 PM CDT Body Mass Index 28.29 08/11/2015 1:10 PM CDT Plan of Treatment Health Maintenance Due Date Last Done Comments COLOGUARD (AGES 45-75) - COL ON CA SCREENING 1978 COLON MONITORING 1978 COLONOSCOPY - COLON CA SCREENING 1978 CT COLONOGRAPHY - COLON CA SCREENING 1978 Colorectal Cancer Screening 1978 FIT - COLON CA SCREENING 1978 FLEX SIG - COLON CA SCREENING 1978 MAMMOGRAM 1978 HIV SCREENING 1993 HEPATITIS C SCREENING 10/28/1996 DTAP/TDAP/TD VACCINES (1 - Tdap) 1997 HEPATITIS B VACCINE (1 of 3 - 19+ 3-dose series) 1997 LIPID TESTING 08/01/2020 08/01/2015 DEPRESSION SCREENING 10/17/2024 COVID-19 VACCINE (1 - 2023-2 5 season) 2025 INFLUENZA VACCINE (#1) 2025 ZOSTER VACCINE (1 of 2) 2028 HIB VACCINE Aged Out No longer eligi ble based on patient's age to complete this topic HPV VACCINE Aged Out No longer eligi ble based on patient's age to complete this topic MENINGOCOCCAL (Group B) VACC INE SHARED DECISION-MAKING Aged Out No longer eligibl e based on patient's age to complete this topic MENINGOCOCCAL GROUPS A/C/Y/W VACCINE Aged Out No longer eligible b ased on patient's age to complete this topic PNEUMOCOCCAL VACCINE Aged Out No long er eligible based on patient's age to complete this topic Procedures Procedure Name Priority Date/Time Associated Diagnosis Comments LIPID PROFILE Routine 08/01/2015 8:04 AM CDT from Last 3 Months or Most Recently Relevant to Health Maintenance Results * (ABNORMAL) LIPID PROFILE (08/01/2015 8:04 AM CDT) Cholesterol Total 203(H) <200 mg/dL [facility] HDL 51 >40 mg/dL [facility] Comment: ATP III Classification of HDL Cholesterol: <40 mg/dL: Considered a major risk factor. >60 mg/dL: Considered a negative risk factor. LDL Calculated 130(H) <100 mg/dL [facility] Comment: ATP III Classification of LDL Cholesterol: <100 mg/dL: Optimal 100 - 129 mg/dL: Near Optimal/Above Optimal 130 - 159 mg/dL: Borderline High 160 - 189 mg/dL: High >190 mg/dL: Very High Triglycerides 112 <150 mg/dL [facility] Comment: ATP III Classification of Triglycerides: <150 mg/dL: Normal 150 - 199 mg/dL: Borderline High 200 - 400 mg/dL: High >500 mg/dL: Very High Blood specimen (specimen) BLOOD SPECIMEN / Unknown 08/01/2015 8:04 AM CDT 08/01/2015 8:09 AM CDT Gabriella Mcclellan MD LAB - CHEMISTRY ORDERABLES [facility] [place] Result Performing Organization Address City/State/[facility] Co de Phone Number [address] [phone] from Last 3 Months or Most Recently Relevant to Health Maintenance Insurance [facility] [place] [id number] [facility] Advance Directives * Full Code (Latest Code Status on File) Date Activated Date Inactivated Comments 05/26/2015 12:52 PM 05/26/2015 7:31 PM * Full Code Date Activated Date Inactivated Comments 12/23/2014 1:05 PM 12/24/2014 8:28 PM * FULL RESUSCITATION Date Activated Date Inactivated Comments 03/27/2012 9:08 PM 03/28/2012 9:41 PM * Full Code Date Activated Date Inactivated Comments 03/05/2011 9:29 PM 03/06/2011 3:45 AM Care Teams Audit Intern Relationship Specialty Start Date End Date Tyson Vázquez MD PCP - General Family Medicine 12/16/14
--- OUTSIDE RECORDS SUMMARY | 2025-07-11 07:55 | XMS_ITS | Encounter Summary ---
Author Organization [facility] Facility Care Team Providers Care Plate Printer Name Role Phone Tyson Vázquez MD Primary Care Provid er Jonah Ceron DO Unavailable [phone] Bhupinder NICHOLS MD, Jonah Caraballo Unavailable [phone] Carie Rush Primary Care Provider + Encounter Details Date Type Department Care Team (Latest Contact Info) Description 04/15/2017 Orders Only [facility] CLINCONV Provider, MD Logan [address] [place] [address] Social History Tobacco Use Types Packs/Day Years Used Date Smoking Tobacco: Never Alcohol Use Standard Drinks/Week Comments Yes 0 (1 standard drink = 0.6 oz pur e alcohol) Comments Unknown Sex and Gender Information Value Date Recorded Sex Assigned at Not on file 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 us Historical Provider CV CARDIAC SERVICES PROCE DURES Final Result * CARDIOLOGY REPORT (04/15/2017 12:00 AM CDT) Anatomical Region Laterality Modality Other Narrative 04/15/2017 12:00 AM CDT Ordered by an unspecified provider. us Historical Provider CV CARDIAC SERVICES PROCE DURES Final Result documented in this encounter Visit Diagnoses Not on filedocumented in this encounter Care Teams Plate Printer Relationship Specialty Start Date End Date Tyson Vázquez MD [address] [place] [address] PCP - General 10/08/15 04/28/25 Carie Rush PA [address] [facility] [address] [place] [address] PCP - General Family Medicine 04/29/25 Jonah Ceron DO [address] [place] [address] MEDICAL ONCOLOGY, [facility] [address] [place] [address] Medical Oncologist/Sales Service Supervisor Hematology and Oncology 12/24/20 Jonah Roe III, MD [address] [place] [address] Consulting Physician Rheumatology 05/13/21 documented as of this encounter
[2025-07-11 08:01] VITALS: BP 133/88; PULSE 108; RESP 19; O2SAT 96
--- NOTE | 2025-07-11 08:07 | ED_ITS ---
HPI - General Adult General Chief complaint: Chest Pain Stated complaint: CHEST PAIN/SOB X1D Time Seen by Provider: 07/11/25 07:44 History of Present Illness HPI narrative: 44-year-old female presents to the emergency department for evaluation for left- sided chest pain that started last night. Patient also does reported associated hypertension and exertional shortness of breath. No prior history of PE or DVT. Patient denies any cardiac history. Patient does take estrogen. Patient does have history seizures and did have a short seizure on Tuesday. Patient suspects that she may have been injured as her coworkers were trying to lift her and put her into a safe position during her last seizure. Patient is on seizure meds and has been compliant with these. Related Data Home Medications ?Medication ?Instructions ?Recorded ?Confirmed ?Last Taken ?Type clonazepam 0.5 mg disintegrating 12/24/19 Unknown Hi story tablet ondansetron HCl 4 mg tablet 12/24/19 12/24/19 Unknown History oxycodone-acetaminophen 10 mg-325 12/24/19 Unknown H istory mg tablet zolpidem 10 mg tablet 12/24/19 Unknown History amoxicillin 875 mg-potassium tablet 11/25/21 Unknown History clavulanate 125 mg tablet escitalopram oxalate 20 mg tablet mg 11/25/21 11/25/21 Unknown History estradiol 2 mg tablet mg 11/25/21 11/25/21 Unknown History hydromorphone 4 mg tablet 11/25/21 Unknown History propranolol 10 mg tablet 11/25/21 Unknown History Allergies Allergy/AdvReac Type Severity Reaction Status Date / Time Iodinated Contrast Media Allergy Severe Anaphylaxis Verified 07/11/25 08:10 Review of Systems 2 Review of Systems: All systems reviewed & are unremarkable except as noted in HPI and below PMFSH Past Medical History Medical History Anxiety Asthma Autoimmune disorder Bilateral ovarian cysts Depression Endometriosis Hypothyroid IBS (irritable bowel syndrome) Kidney stone UTI (urinary tract infection) Surgical History Surgical History H/O bilateral oophorectomy H/O laparoscopy H/O right knee surgery H/O total hysterectomy History of History of tonsillectomy Social History Social History Smoking status: Never smoker Exam 2 Narrative: APPEARANCE: Well appearing, no pain, no distress, well-nourished. HEAD: normocephalic, atraumatic. EYES: PERRLA/EOMI, conjunctivae clear. NOSE: Normal no drainage EARS:TMS clear with good light reflex. THROAT: Pharynx clear, no exudate. NECK: Supple. No adenopathy, no masses. RESPIRATORY: Airway patent, respirations nonlabored. Clear to auscultation bilaterally, no rales, rhonchi, wheezing. CARDIOVASCULAR: Regular rate and rhythm without murmurs rubs or gallops. ABDOMINAL: Soft, nontender, nondistended, normal bowel sounds MUSCULOSKELETAL: Moves all extremities. Strength/ROM intact, No edema, No calf tenderness. NEURO: Alert. Cranial nerves II through XII intact. Good gait. Good coordination SKIN: Warm, dry. Normal Color Course Vital Signs Vital signs: Vital Signs Temperature 96.0 F L 07/11/25 07:35 Pulse Rate 105 H 07/11/25 07:35 Respiratory Rate 29 H 07/11/25 07:35 Blood Pressure 129/65 07/11/25 07:35 Pulse Oximetry 100 07/11/25 07:35 Oxygen Delivery Room Air 07/11/25 07:35 Temperature 96.0 F L 07/11/25 07:35 Pulse Rate 76 07/11/25 12:40 Respiratory Rate 16 07/11/25 12:40 Blood Pressure 116/76 07/11/25 12:40 Pulse Oximetry 100 07/11/25 12:40 Oxygen Delivery Room Air 07/11/25 07:45 Medical Decision Making [facility] Narrative Medical decision making narrative: 44-year-old female presents to the emergency department for evaluation for intermittent left-sided chest pain. Patient did have a seizure on Tuesday and suspect she may have had a muscular injury. Patient is currently afebrile no leukocytosis hemoglobin 13.6. Patient has INR 1.2 and a D-dimer of less than 0.27. Patient's initial troponin was negative, 3 hour troponin was mildly elevated above baseline at 0.018 but 6 hour troponin was back down to undetectable less than 0.012. TSH was negative. Patient was negative influenza RSV and for COVID. Chest x-ray shows no acute cardiopulmonary abnormality. Suspect pleurisy versus muscular strain related to her recent seizure. Low concern for pulmonary embolism, low concern for ACS pneumonia or pneumothorax. Patient was up to the results of the workup. All questions concerns were addressed. Patient was encouraged close follow-up with primary care physician for additional outpatient cardiac testing. Differential Diagnosis Differential Diagnosis: Pneumonia, pneumothorax, pulmonary embolism, ACS, pleurisy, musculoskeletal injury Vital Signs Vital Signs: Vital Signs Temperature 96.0 F L 07/11/25 07:35 Pulse Rate 105 H 07/11/25 07:35 Respiratory Rate 29 H 07/11/25 07:35 Blood Pressure 129/65 07/11/25 07:35 Pulse Oximetry 100 07/11/25 07:35 Oxygen Delivery Room Air 07/11/25 07:35 Temperature 96.0 F L 07/11/25 07:35 Pulse Rate 76 07/11/25 12:40 Respiratory Rate 16 07/11/25 12:40 Blood Pressure 116/76 07/11/25 12:40 Pulse Oximetry 100 07/11/25 12:40 Oxygen Delivery Room Air 07/11/25 07:45 Lab Data Lab results reviewed: Yes I reviewed the patient's lab results. 07/11/25 07:43 07/11/25 07:43 Labs: Lab Results 07/11/25 07/11/25 07/11/25 Range/Units 07:43 08:08 10:27 WBC 5.9 (4.5-10.0) K/mm3 RBC 4.33 (4.2-5.4) M/mm3 Hgb 13.6 (12.0-15.0) g/dL Hct 40.2 (37.0-47.0) % MCV 92.8 (80-100) fl MCH 31.4 (26-34) pg MCHC 33.8 (32-36) g/dl RDW 13.0 (11.5-14.5) % Plt Count 215 (150-375) k/mm3 MPV 9.2 (7.4-10.4) fl Immature Gran % (Auto) 0.3 (0-0.5) % Neut % (Auto) 58.8 (45.5-73.1) % Lymph % (Auto) 30.8 (18.3-44.2) % [place] % (Auto) 8.6 H (2.6-8.5) % Eos % (Auto) 1.2 (0-4.4) % Baso % (Auto) 0.3 (0.2-1.2) % Lymph # (Auto) 1.82 (0.9-3.2) K/mm3 [place] # (Auto) 0.5 (0.1-0.6) K/mm3 Eos # (Auto) 0.1 (0-0.3) K/mm3 Baso # (Auto) 0.0 (0.0-0.1) K/mm3 Abs Immat Gran (auto) 0.02 (0.00-0.031) K/mm3 Absolute Neuts (auto) 3.5 (1.3-6.7) K/mm3 Absolute Nucleated RBC 0.000 (0.0-0.012) K/mm3 Nucleated RBC % 0.0 (0.0-0.2) % PT 15.3 H (11.1-14.7) Seconds INR 1.2 APTT 26.7 (22.3-36.8) Seconds D-Dimer < 0.27 (<0.48) ug/mL Sodium 136 L (137-145) mmol/L Potassium 4.0 (3.4-5.0) mmol/L Chloride 104 (98-107) mmol/L Carbon Dioxide 23 (22-30) mmol/L Anion Gap 9 (4-12) mmol/L BUN 14 D (7-17) mg/dL Creatinine 0.89 (0.7-1.0) mg/dL Estim Creat Clear Calc 74 ml/min Estimated GFR > 60 (59 - ) Glucose 113 H (65-110) mg/dL Calcium 9.2 (8.4-10.2) mg/dL Magnesium 2.0 (1.6-2.3) mg/dL Total Bilirubin 0.2 (0.2-1.3) mg/dL AST 27 (14-36) U/L ALT 21 (6-35) U/L Alkaline Phosphatase 67 (38-126) U/L Troponin I < 0.012 0.018 D (0.000-0.034) ng/mL Total Protein 7.6 (6.3-8.2) g/dL Albumin 4.4 (3.5-5.1) g/dL Lipase 548 H (23-300) U/L TSH (Reflex) 2.690 (0.465-4.68) uIU/mL Influenza A (RT-PCR) Negative (Negative) Influenza B (RT-PCR) Negative (Negative) RSV (RT-PCR) Negative (Negative) SARS-CoV-2 RNA (RT-PCR) Negative (Negative) 07/11/25 Range/Units 13:35 WBC (4.5-10.0) K/mm3 RBC (4.2-5.4) M/mm3 Hgb (12.0-15.0) g/dL Hct (37.0-47.0) % MCV (80-100) fl MCH (26-34) pg MCHC (32-36) g/dl RDW (11.5-14.5) % Plt Count (150-375) k/mm3 MPV (7.4-10.4) fl Immature Gran % (Auto) (0-0.5) % Neut % (Auto) (45.5-73.1) % Lymph % (Auto) (18.3-44.2) % [place] % (Auto) (2.6-8.5) % Eos % (Auto) (0-4.4) % Baso % (Auto) (0.2-1.2) % Lymph # (Auto) (0.9-3.2) K/mm3 [place] # (Auto) (0.1-0.6) K/mm3 Eos # (Auto) (0-0.3) K/mm3 Baso # (Auto) (0.0-0.1) K/mm3 Abs Immat Gran (auto) (0.00-0.031) K/mm3 Absolute Neuts (auto) (1.3-6.7) K/mm3 Absolute Nucleated RBC (0.0-0.012) K/mm3 Nucleated RBC % (0.0-0.2) % PT (11.1-14.7) Seconds INR APTT (22.3-36.8) Seconds D-Dimer (<0.48) ug/mL Sodium (137-145) mmol/L Potassium (3.4-5.0) mmol/L Chloride (98-107) mmol/L Carbon Dioxide (22-30) mmol/L Anion Gap (4-12) mmol/L BUN (7-17) mg/dL Creatinine (0.7-1.0) mg/dL Estim Creat Clear Calc ml/min Estimated GFR (59 - ) Glucose (65-110) mg/dL Calcium (8.4-10.2) mg/dL Magnesium (1.6-2.3) mg/dL Total Bilirubin (0.2-1.3) mg/dL AST (14-36) U/L ALT (6-35) U/L Alkaline Phosphatase (38-126) U/L Troponin I < 0.012 D (0.000-0.034) ng/mL Total Protein (6.3-8.2) g/dL Albumin (3.5-5.1) g/dL Lipase (23-300) U/L TSH (Reflex) (0.465-4.68) uIU/mL Influenza A (RT-PCR) (Negative) Influenza B (RT-PCR) (Negative) RSV (RT-PCR) (Negative) SARS-CoV-2 RNA (RT-PCR) (Negative) Imaging Data Radiologist's impression: Impressions Chest X-Ray 07/11/25 08:06 IMPRESSION: 1. No acute cardiopulmonary findings. ECG Data EKG #1: EKG Interpretation: normal rate, sinus rhythm, no ectopy, non-specific ST changes, normal QRS, normal QT and NL axis Discharge Plan Discharge Clinical Impression: Atypical chest pain, Chest wall pain Patient Disposition: Home Condition: Stable Instructions: Antibiotic Form, Chest Wall Pain (ED) Additional Instructions: Tylenol and ibuprofen for pain control. Have close follow-up with your primary care physician for additional outpatient cardiac testing. If you have any worsening symptoms then please call or return to the emergency department. Patient Language: Portuguese Prescriptions: No Action amoxicillin-pot clavulanate 875-125 mg tablet propranolol 10 mg tablet estradiol 2 mg tablet hydromorphone 4 mg tablet escitalopram oxalate 20 mg tablet ondansetron HCl 4 mg tablet oxycodone-acetaminophen 10-325 mg tablet zolpidem 10 mg tablet clonazepam 0.5 mg tablet,disintegrating Follow-up/Referrals: PHYSICIAN NOT ON STAFF,NONSTAFF [Primary Care Provider] Quality HEART score for chest pain patients History: slightly suspicious ECG: normal Age: > 45 and < 65 years Risk factors: 1 or 2 risk factors Troponin: < or = to 1x normal limit Heart score: 2
--- NOTE | 2025-07-11 08:12 | PC.NURSE ---
called lab to add on D Dimer, Mg, TSH Reflex
[2025-07-11] MEDS: ONDANSETRON INJ 4 MG/2 ML VIAL IV PUSH (08:14)
[2025-07-11] MEDS: KETOROLAC 15 MG/ML VIAL (*BKC) IV PUSH (08:15)
[2025-07-11] MEDS: LACTATED RINGERS 1,000 ML 999 ML IV CONT (08:16)
[2025-07-11 08:18] LABS: Alanine Aminotransferase 21 U/L (6-35); Albumin Level 4.4 g/dL (3.5-5.1); Alkaline Phosphatase 67 U/L (38-126); Anion Gap 9 mmol/L (4-12); Aspartate Amino Transferase 27 U/L (14-36); Bilirubin,Total 0.2 mg/dL (0.2-1.3); Blood Urea Nitrogen 14 mg/dL (7-17); Calcium 9.2 mg/dL (8.4-10.2); Carbon Dioxide 23 mmol/L (22-30); Chloride 104 mmol/L (98-107); Estimated CRCL calculation 74 ml/min; Estimated Glomerular Filt Rate > 60; Glucose 113 mg/dL (65-110); Lipase 548 U/L (23-300); Potassium 4.0 mmol/L (3.4-5.0); Sodium 136 mmol/L (137-145); Total Protein 7.6 g/dL (6.3-8.2)
[2025-07-11 08:24] LABS: INR 1.2; Prothrombin Time 15.3 Seconds (11.1-14.7)
[2025-07-11 08:26] LABS: Partial Thromboplastin Time 26.7 Seconds (22.3-36.8)
[2025-07-11 08:30] LABS: Troponin I < 0.012 ng/mL (0.000-0.034)
[2025-07-11 08:31] VITALS: BP 113/61; PULSE 91; RESP 18; O2SAT 98
[2025-07-11 08:50] LABS: Influenza A QL RT-PCR Negative (Negative); Influenza B QL RT-PCR Negative (Negative); RSV RNA, RT-PCR Negative (Negative); SARS-CoV-2 RNA PCR Negative (Negative)
[2025-07-11 08:55] LABS: Thyroid Stimulating Hormone Reflex 2.690 uIU/mL (0.465-4.68)
[2025-07-11 08:59] LABS: Magnesium 2.0 mg/dL (1.6-2.3)
--- NOTE | 2025-07-11 10:32 | ECG_ITS ---
Test Date: 2025-07-11 10:33:51 Measurements Intervals [place] Rate: 74 P: 31 ND: 170 QRS: 53 QRSD: 85 T: 30 QT: 381 QTc: 423 Interpretive Statements SINUS RHYTHM LOW QRS VOLTAGE [QRS DEFLECTION < 0.5/1.0 mV IN LIMB/CHEST LEADS] OTHERWISE NORMAL ECG Compared to ECG 07/11/2025 07:36:38 NO DIFFERENCE Electronically Signed On 07-11-2025 16:31:59 CDT by Sonu Ordonez M.D.
[2025-07-11 11:00] LABS: Troponin I 0.018 ng/mL (0.000-0.034)
[2025-07-11 12:40] VITALS: BP 116/76; PULSE 76; RESP 16; O2SAT 100
[2025-07-11] MEDS: METOCLOPRAMIDE HCL INJ 10 MG/2 ML VIAL IV PUSH (12:41)
[2025-07-11] MEDS: HYDROmorphone HCL INJ (*CRX) 1 MG/ML SYR 0.5 MG IV PUSH (12:42)
--- NOTE | 2025-07-11 13:31 | ECG_ITS ---
Test Date: 2025-07-11 13:44:00 Measurements Intervals [place] Rate: 74 P: 41 WV: 171 QRS: 49 QRSD: 89 T: 39 QT: 392 QTc: 436 Interpretive Statements SINUS RHYTHM LOW QRS VOLTAGE [QRS DEFLECTION < 0.5/1.0 mV IN LIMB/CHEST LEADS] Compared to ECG 07/11/2025 10:33:51 No significant changes Electronically Signed On 07-11-2025 13:58:24 CDT by Keli Rivera M.D.
[2025-07-11 14:11] LABS: Troponin I < 0.012 ng/mL (0.000-0.034)
== END 2025-07-11 14:26 | disposition home or self-care (01) ==
PROVIDERS: Emergency Provider Emergency Medicine
DX: R07.89 Other chest pain (principal); R06.02 Shortness of breath; I10 Essential (primary) hypertension; G40.909 Epilepsy, unspecified, not intractable, without status epilepticus; Z20.822 Contact with and (suspected) exposure to COVID-19
CPT/HCPCS: 36415; 71046; 80053; 83690; 83735; 84443; 84484; 85025; 85380; 85610; 85730; 87637; 93005; 96361; 96374; 96375; 99284; A9270; J1171; J1885; J2405; J2765; J7120